=== PATIENT | female | born 1935 | race Two or more races ===

== ENCOUNTER 2018-10-06 17:54 | Inpatient (IN) | payer MEDICARE, OTHER ==
[~2018-10-06] VITALS: Ht 157.5 cm; Wt 66.2 kg
[2018-10-06 09:00] VITALS: BP 171/89
[2018-10-06] MEDS ORDERED: Z GUARD REMEDY PASTE 57 GM TUBE TOP PRN (22:00)
[2018-10-06] MEDS ORDERED: ATOR80TA GT (23:16)
[2018-10-06] MEDS ORDERED: LEVA1.2528 NEB (23:16)
[2018-10-06] MEDS ORDERED: IPRA0.2S6 NEB (23:16)
[2018-10-06] MEDS ORDERED: APIX2.5T GT (23:16)
[2018-10-06] MEDS ORDERED: AMIO200T4 GT (23:16)
[2018-10-06] MEDS ORDERED: ONDA4SOL2 IV (23:16)
[2018-10-06] MEDS ORDERED: MAGN400O6 GT (23:16)
[2018-10-06] MEDS ORDERED: ZINC220C8 GT (23:16)
[2018-10-06] MEDS ORDERED: ZIPR20CA2 IM (23:16)
--- NOTE | 2018-10-07 04:24 | NUR ---
admitted from [facility] (10/06) @ 2100 via ambulance with an admitting diagnosis of Acute CVA with right side weakness. Awake and alert. Patient aphasic.Able to follow commands. Daughter in with patient. On continous 2L of Oxygen via nasal cannula, pulse 98%. On admission patient has a Gtube placed on (10/07) secondary to unable to passed the swallowing evaluation in [place]. Patient also has a alexander catheter present on admission draining yellow urine. Skin intact, sacral area has some redness, also the bilateral groin has fungal rash noted secondary to moisture related dermatitis. Right upper arm double lumen PICC line(inserted 10/02) flushed and patent. As per report patient is going to be on Acyclovir IV x3 weeks. Patient started on Jevity tube feeds @ 50cc/hr with 100 cc water flush q6hrs HOB up at all times. Gtube patent no residual noted. Has hx of Afib, pulmonary fibrosis, HTN. hyperlipidemia, Hyponatremia, CAD, Dementia, herpes simplex, generalized weakness. Incontinent of BM. last BM (10/06) prior to admission. Dr Sweet aware of patient's admission and also regarding the med reconciliation and also aware of patient's vital signs and said to continue all her meds and he will see the patient today.NIHSS stroke scale assessment done.
[2018-10-07 04:59] VITALS: BP 126/86
[2018-10-07 05:04] VITALS: BP 126/86
[2018-10-07 05:40] VITALS: BP 176/92
--- NOTE | 2018-10-07 05:47 | NUR ---
BP 176/92 HR 116 RESP 19 PULSE OX 95% Metoprolol 5omg given . Will monitor patient.Will notify .
[2018-10-07] MEDS ORDERED: ACYCLOVIR 500 MG VIAL IV ONE (06:20)
[2018-10-07] MEDS: ACYCLOVIR IV SCH ×3 (06:42→22:07)
[2018-10-07] MEDS: NORMAL SALINE IV SCH ×3 (06:42→22:07)
[2018-10-07] MEDS ORDERED: ONDANSETRON HCL 4 MG/5 ML UDC ORAL SOL GT PRN (07:15)
[2018-10-07] MEDS ORDERED: ZIPRASIDONE 20 MG CAPSULE NG PRN (07:15)
[2018-10-07] MEDS ORDERED: MAGNESIUM HYDROXIDE 30 ML LIQUID UDC GT PRN (07:15)
[2018-10-07] MEDS ORDERED: ONDANSETRON 4 MG/2 ML VIAL IV PRN (07:30)
[2018-10-07] MEDS ORDERED: ZIPRASIDONE MESYLATE 20 MG VIAL IM PRN (07:30)
--- NOTE | 2018-10-07 07:49 | NUR ---
Dr Rosado called and let him aware of the BP and metoprolol given @ 6am. BP rechecked at this time 141/88 HR 80. Will endorsed to dayshift nurse.
[2018-10-07 08:46] VITALS: BP 141/88
[2018-10-07] MEDS ORDERED: METOPROLOL TARTRATE 50 MG TABLET GT SCH (09:00)
[2018-10-07] MEDS ORDERED: Medication Not On Formulary EA (Apixaban (Eliquis) 2.5 MG) GT SCH (09:00)
[2018-10-07] MEDS: LEVALBUTEROL HCL 1.25 MG/0.5 ML NEB NEB PRN ×2 (09:04→17:33)
[2018-10-07] MEDS: IPRATROPIUM BROMIDE 0.5 MG/2.5 ML NEBU NEB PRN ×2 (09:04→17:33)
[2018-10-07] MEDS: ZINC SULFATE 220 MG CAPSULE GT SCH (09:53)
[2018-10-07] MEDS: AMIODARONE HCL 200 MG TABLET GT SCH ×2 (09:54→22:06)
[2018-10-07] MEDS ORDERED: FUROSEMIDE 20 MG TABLET PO SCH (12:30)
--- NOTE | 2018-10-07 12:35 | NUR ---
Showed Dr. Rosado the ECG result done today and per MD no new order.
--- NOTE | 2018-10-07 12:41 | NUR ---
Dr. Rosado in the unit saw patient and gave order to change lasix 20mg PO to 20mg IV daily.
[2018-10-07] MEDS: FUROSEMIDE 20 MG/2 ML VIAL IV SCH (12:57)
[2018-10-07] MEDS: APIXABAN 5 MG TABLET GT SCH ×2 (13:01→22:11)
[2018-10-07 15:36] VITALS: BP 153/70
[2018-10-07 16:20] LABS: CARBON DIOXIDE 31 mmol/L (21-32); CHLORIDE 99 mmol/L (98-107); CREATININE 0.7 mg/dL (0.6-1.3); GLUCOSE 111 mg/dL (74-106); POTASSIUM 3.8 mmol/L (3.5-5.1); UREA NITROGEN, BLOOD 23 mg/dL (7-18)
--- NOTE | 2018-10-07 18:22 | NUR ---
Received an order from Dr. Kramer who is in the unit for Nystatin cream Q12hrs apply topically to bilateral groin.
[2018-10-07 20:21] VITALS: BP 157/71
[2018-10-07] MEDS: JEVITY 1.2 1000 ML LIQUID GT PRN (21:00)
[2018-10-07] MEDS ORDERED: APIXABAN 5 MG TABLET GT SCH (21:00)
[2018-10-07] MEDS: ATORVASTATIN 40 MG TABLET GT SCH (22:05)
[2018-10-07] MEDS: NYSTATIN CREAM 30 GM TUBE TOP SCH (22:07)
[2018-10-08 04:00] VITALS: BP 140/66
[2018-10-08] MEDS: NORMAL SALINE IV SCH ×3 (05:40→21:28)
[2018-10-08] MEDS: ACYCLOVIR IV SCH ×3 (05:40→21:28)
--- NOTE | 2018-10-08 06:00 | NUR ---
NEEDED NASAL SX TO PROTECT AIRWAY, DAUGHTER UPSET ABOUT PT BEING AWAKENED SO OFTEN,ATTEMPTED TO EXPLAIN REASONS FOR SX WITHOUT ANY SUCCESS. INFORMED ME TO JUST LEAVE HER MOTHER ALONE SO SHE COULD SLEEP A FEW HRS.. DAUGHTER AT BS ASLEEP ON THE FLOOR, PER HER WISHES..
[2018-10-08 07:13] LABS: BASOPHILS % (AUTO) 0.3 % (0.0-2.0); EOSINOPHILS # (AUTO) 0.6 K/uL (0.0-0.7); EOSINOPHILS % (AUTO) 4.8 % (0.0-7.0); HEMATOCRIT 24.1 % (31.2-41.9); HEMOGLOBIN 8.2 g/dL (10.9-14.3); LYMPHOCYTES # (AUTO) 1.4 K/uL (20.0-40.0); LYMPHOCYTES % (AUTO) 11.5 % (20.5-51.5); MEAN CORPUSCULAR HEMOGLOBIN 30.9 uug (24.7-32.8); MEAN CORPUSCULAR HGB CONC 34 g/dL (32.3-35.6); MEAN CORPUSCULAR VOLUME 90.3 fL (75.5-95.3); MONOCYTES # (AUTO) 1.1 K/uL (2.0-10.0); NEUTROPHILS # (AUTO) 9.4 K/uL (1.8-8.9); NEUTROPHILS % (AUTO) 74.4 % (38.5-71.5); PLATELET COUNT (AUTO) 283 K/uL (179-408); RED BLOOD CELL COUNT(AUTO) 2.67 MIL/uL (3.63-4.92); WHITE BLOOD COUNT (AUTO) 12.6 K/uL (3.8-11.8)
[2018-10-08 07:24] LABS: ALANINE AMINOTRANSFERASE 28 U/L (14-59); ALKALINE PHOSPHATASE 45 U/L (50-136); ASPARTATE AMINOTRANSFERASE 21 U/L (15-37); BILIRUBIN,TOTAL 0.4 mg/dL (0.2-1.0); CARBON DIOXIDE 30 mmol/L (21-32); CHLORIDE 103 mmol/L (98-107); CREATININE 0.8 mg/dL (0.6-1.3); GLUCOSE 133 mg/dL (74-106); MAGNESIUM 1.7 mg/dL (1.8-2.4); PHOSPHOROUS 4.1 mg/dL (2.5-4.9); POTASSIUM 3.9 mmol/L (3.5-5.1); TOTAL PROTEIN, SERUM 6.2 g/dL (6.4-8.2); UREA NITROGEN, BLOOD 23 mg/dL (7-18)
[2018-10-08 08:00] VITALS: BP 172/83
[2018-10-08] MEDS: APIXABAN 5 MG TABLET GT SCH ×2 (08:20→20:34)
[2018-10-08] MEDS: ZINC SULFATE 220 MG CAPSULE GT SCH (08:20)
[2018-10-08] MEDS: AMIODARONE HCL 200 MG TABLET GT SCH ×2 (08:21→20:29)
[2018-10-08] MEDS: FUROSEMIDE 20 MG/2 ML VIAL IV SCH (08:21)
[2018-10-08] MEDS: NYSTATIN CREAM 30 GM TUBE TOP SCH ×2 (08:22→20:34)
[2018-10-08] MEDS: IPRATROPIUM BROMIDE 0.5 MG/2.5 ML NEBU NEB PRN ×3 (09:39→20:40)
[2018-10-08] MEDS: LEVALBUTEROL HCL 1.25 MG/0.5 ML NEB NEB PRN ×3 (09:39→20:40)
--- NOTE | 2018-10-08 10:10 | NUR ---
Received patient awake in stable condition, Continue on jevity tube feeding. site intact. no signs of infection. Continue Pick line right arm. no signs of infiltration. Continue acyclovir treatment every 8 hours for herpes simplex. ABG result seen by MD Núñez. For neuro and nephro consult. Continue alexander catheter. intact and patent. Continue therapy treatment for ADL activity. will continue monitor
--- NOTE | 2018-10-08 10:23 | NUR ---
Neurologist MD Chau agreed to come this evening for the patient consult.
[2018-10-08] MEDS: MAGNESIUM OXIDE 400 MG TABLET PO SCH ×2 (12:51→20:28)
[2018-10-08 16:00] VITALS: BP 142/74
--- NOTE | 2018-10-08 19:15 | NUR ---
Awake during initial rounds. HOB elevated, saturating 97% at this time with O2 at 2L via NC. No s/s of respiratory distress noted. Family at bedside. PICC line right upper arm intact and patent. GT feeding continuos via Enteral pump, well tolerated. NO s/s of aspiration. Safety measure and fall precaution maintained. Continue care as planned.
[2018-10-08] MEDS: ATORVASTATIN 40 MG TABLET GT SCH (20:28)
[2018-10-08] MEDS: LEVETIRACETAM 500 MG/5 ML LIQUID UDC GT SCH (20:29)
[2018-10-08 20:48] VITALS: BP 157/91
[2018-10-08 20:57] VITALS: BP 166/89
--- NOTE | 2018-10-08 23:52 | NUR ---
Breathing slightly labored. Lung assessment done, crackles noted. Kept HOB elevated. RT notified and gave breathing treatment as needed and suctioned nasally as tolerated and obtained whitish colored sputum in moderate amount. Will continue to monitor.
[2018-10-09 04:10] VITALS: BP 202/92
[2018-10-09] MEDS: LEVALBUTEROL HCL 1.25 MG/0.5 ML NEB NEB PRN ×2 (04:18→12:58)
[2018-10-09] MEDS: IPRATROPIUM BROMIDE 0.5 MG/2.5 ML NEBU NEB PRN ×2 (04:18→12:58)
--- NOTE | 2018-10-09 04:20 | NUR ---
Pt moaning, holding her forehead. VS checked, 202/92, 113, 99.2. 99%. Spoke with Dr. Fernandes and obtained order of Nitri paste 1 inch to CW Q6 PRN SBP 170>.
[2018-10-09] MEDS: JEVITY 1.2 1000 ML LIQUID GT PRN (04:37)
[2018-10-09] MEDS ORDERED: NITROGLYCERIN OINT 1 GM PACKET TP ONE (04:46)
[2018-10-09] MEDS: NITROGLYCERIN OINT 1 GM PACKET TP PRN ×2 (04:46→12:15)
[2018-10-09 04:54] VITALS: BP 149/77
--- NOTE | 2018-10-09 04:57 | NUR ---
VS rechecked, 149/72, 92, 99%, 20, 99.0 . Will continue to monitor.
[2018-10-09] MEDS: NORMAL SALINE IV SCH ×2 (05:44→12:57)
[2018-10-09] MEDS: ACYCLOVIR IV SCH ×2 (05:44→12:57)
--- NOTE | 2018-10-09 06:00 | NUR ---
BP rechecked 160/85. No s/s of hypertension noted. Denies any pain/discomforts. Continue to monitor.
[2018-10-09 07:04] VITALS: BP 160/85
--- NOTE | 2018-10-09 07:38 | NUR ---
Shift End Report: VS been monitored closely. Nitro paste effective. No further complaint presented. All needs attended and met. Continue care as planned.
[2018-10-09 08:00] VITALS: BP 153/81
[2018-10-09] MEDS ORDERED: PROTEIN SUPPLEMENT (PROSTAT) 30 ML LIQUID GT SCH (08:00)
[2018-10-09] MEDS ORDERED: FUROSEMIDE 20 MG TABLET PO SCH (09:00)
[2018-10-09] MEDS: ZINC SULFATE 220 MG CAPSULE GT SCH (09:24)
[2018-10-09] MEDS: LEVETIRACETAM 500 MG/5 ML LIQUID UDC GT SCH (09:25)
[2018-10-09] MEDS: NYSTATIN CREAM 30 GM TUBE TOP SCH (09:25)
[2018-10-09] MEDS: AMIODARONE HCL 200 MG TABLET GT SCH (09:25)
[2018-10-09] MEDS: APIXABAN 5 MG TABLET GT SCH (09:37)
--- NOTE | 2018-10-09 10:19 | NUR ---
Patient noted resting in bed, no complaints of pain at this time, no signs of distress noted, daughter noted at bedside, call light in reach, bed locked and in lowest position, G-tube flushed with water and clamped off for physical therapy at this time, all medications crushed and given through G-tube with out complications, all needs met at this time
--- NOTE | 2018-10-09 10:50 | NUR ---
INTERDISCIPLINARY TEAM CONFERENCE
[2018-10-09 12:15] VITALS: BP 188/93
[2018-10-09] MEDS ORDERED: BENAZEPRIL HCL 10 MG TABLET PO SCH (16:43)
--- NOTE | 2018-10-09 17:08 | NUR ---
-1630 VITALS: 165/77, 98% O2 ON 2 LITERS NASAL CANNULA, 22 RESPIRATIONS, 96 PULSE, 98.6 ORAL TEMPERATURE -1650 VITALS: 288/103, 119 PULSE, FSBS: 141, OXYGEN SATURATION NOTED AT 22 % -1650 FAMILY STATES PATIENT IS HAVING DIFFICULTY WITH BREATHING, RAPID RESPONSE CALLED, PATIENT APPEARS WITH BLUE DISCOLORATION TO LIPS, SHORTNESS OF BREATH NOTED, SUCTION PROVIDED, READJUSTMENT OF OXYGEN PROBE, RT PLACED NON REBREATHER ON PATIENT AND TURNED OXYGEN UP TO 10 LITERS, PATIENT THEN SATURATED 99% PATIENT TRANSFERRED TO EMERGENCY ROOM AT THIS TIME. MD CARCAMO PAGED AND AWAITING RETURNED CALL. MD PAYNE NOTIFIED OF FINDINGS Addendum: 10/09/18 at 1739 by SANJUANITA PUTNAM RN RN correction: B/P 228/103
== END 2018-10-09 17:00 | disposition short-term general hospital (02) | DRG 56 ==
PROVIDERS: ADMIT Physical Medicine & Rehabilitation Pain Medicine; ATTEND Physical Medicine & Rehabilitation Pain Medicine
DX: I69.351 Hemiplegia and hemiparesis following cerebral infarction affecting right dominant side (principal); B00.4 Herpesviral encephalitis; J96.01 Acute respiratory failure with hypoxia; R47.01 Aphasia; G93.49 Other encephalopathy; J81.1 Chronic pulmonary edema; R13.10 Dysphagia, unspecified; R27.0 Ataxia, unspecified; I69.398 Other sequelae of cerebral infarction; E78.5 Hyperlipidemia, unspecified; R06.03 Acute respiratory distress; F03.90 Unspecified dementia, unspecified severity, without behavioral disturbance, psychotic disturbance, mood disturbance, and anxiety; I12.9 Hypertensive chronic kidney disease with stage 1 through stage 4 chronic kidney disease, or unspecified chronic kidney disease; N18.2 Chronic kidney disease, stage 2 (mild); R56.9 Unspecified convulsions; I48.0 Paroxysmal atrial fibrillation; Z93.1 Gastrostomy status; D64.9 Anemia, unspecified; L89.152 Pressure ulcer of sacral region, stage 2; M81.0 Age-related osteoporosis without current pathological fracture; Z87.891 Personal history of nicotine dependence; Z88.2 Allergy status to sulfonamides; I70.0 Atherosclerosis of aorta; Z91.81 History of falling; R26.9 Unspecified abnormalities of gait and mobility
CPT/HCPCS: 36415; 70030-TC; 71045; 83735; 84100; 84443; 85025; 92523; 92526; 92610; 93005; 94640; 94664; 97110; 97112; 97116; 97165; 97530; 97535; A4217; A4663; J0133; J1940; J3490; J3590; J7040

== ENCOUNTER 2018-10-09 17:04 | Inpatient (IN) | payer MEDICARE, OTHER ==
[2018-10-09] VITALS (8 sets, daily range): BP systolic 115–163; BP diastolic 52–85
[~2018-10-09] VITALS: Ht 157.5 cm; Wt 58.1 kg
[~2018-10-09 17:04] MED LIST: AMIO200T4 GT; APIX2.5T GT; ATOR80TA GT; IPRA0.2S6 NEB; LEVA1.2528 NEB; MAGN400O6 GT; ONDA4SOL2 IV; ZINC220C8 GT; ZIPR20CA2 IM
--- NOTE | 2018-10-09 17:07 | NUR ---
At 1700, Dr. Concepcion at the bedside for MSE. Pt transferred from Acute Rehab rapid reponse. Addendum: 10/09/18 at 1812 by BEKAH Pt desaturating SpO2 in acute rehab and pt received on 100% NRB mask.
[2018-10-09] MEDS ORDERED: MORPHINE SULFATE 4 MG/1 ML DISP.SYRIN ONE (17:12)
[2018-10-09] MEDS ORDERED: NITROGLYCERIN IV 250 ML ONE (17:13)
[2018-10-09] MEDS ORDERED: NITROGLYCERIN IV 250 ML IV ONE (17:15)
[2018-10-09] MEDS ORDERED: BUMETANIDE INJ 4 MG in IV DEXTROSE 5% 24 ML IV ONE (17:15)
[2018-10-09] MEDS ORDERED: MORPHINE SULFATE 2 MG/1 ML DISP.SYRIN IV ONE (17:15)
[2018-10-09] MEDS ORDERED: FUROSEMIDE 40 MG/4 ML VIAL ONE (17:19)
[2018-10-09] MEDS ORDERED: FUROSEMIDE 20 MG/2 ML VIAL IV ONE (17:30)
[2018-10-09 17:32] LABS: BASOPHILS # (AUTO) 0.1 K/uL (0.0-8.0); BASOPHILS % (AUTO) 0.4 % (0.0-2.0); EOSINOPHILS # (AUTO) 0.5 K/uL (0.0-0.7); EOSINOPHILS % (AUTO) 3.3 % (0.0-7.0); HEMATOCRIT 28.5 % (31.2-41.9); HEMOGLOBIN 9.5 g/dL (10.9-14.3); LYMPHOCYTES # (AUTO) 2.2 K/uL (20.0-40.0); LYMPHOCYTES % (AUTO) 13.1 % (20.5-51.5); MEAN CORPUSCULAR HEMOGLOBIN 30.3 uug (24.7-32.8); MEAN CORPUSCULAR HGB CONC 33 g/dL (32.3-35.6); MEAN CORPUSCULAR VOLUME 90.8 fL (75.5-95.3); MONOCYTES # (AUTO) 1.6 K/uL (2.0-10.0); MONOCYTES % (AUTO) 9.8 % (0.0-11.0); NEUTROPHILS # (AUTO) 12.2 K/uL (1.8-8.9); NEUTROPHILS % (AUTO) 73.4 % (38.5-71.5); PLATELET COUNT (AUTO) 323 K/uL (179-408); RED BLOOD CELL COUNT(AUTO) 3.14 MIL/uL (3.63-4.92); WHITE BLOOD COUNT (AUTO) 16.6 K/uL (3.8-11.8)
[2018-10-09 17:41] LABS: CARBON DIOXIDE 31 mmol/L (21-32); CHLORIDE 100 mmol/L (98-107); CREATININE 0.8 mg/dL (0.6-1.3); GLUCOSE 131 mg/dL (74-106); UREA NITROGEN, BLOOD 26 mg/dL (7-18)
[2018-10-09 17:54] LABS: ALANINE AMINOTRANSFERASE 43 U/L (14-59); ALKALINE PHOSPHATASE 62 U/L (50-136); ASPARTATE AMINOTRANSFERASE 38 U/L (15-37); BILIRUBIN,DIRECT 0.1 mg/dL (0.0-0.2); BILIRUBIN,TOTAL 0.4 mg/dL (0.2-1.0); TOTAL PROTEIN, SERUM 7.6 g/dL (6.4-8.2)
--- NOTE | 2018-10-09 18:10 | NUR ---
Dr. Concepcion spoke with Dr. Fely Seaman on the telephone and report given. IV nitroglycerin stopped per Dr. Seaman's orders. Will continue to monitor pt's blood pressure.
--- NOTE | 2018-10-09 19:14 | NUR ---
Full telephone SBAR report given to ALEJANDRA Pretty.
--- NOTE | 2018-10-09 19:40 | NUR ---
Admitted an 83 y.o. female patient from ER via lio DX:CHF. To CCU 1 as Tele overflow. Patient aphasic, with R sided weakness from recent CVA. Opens eyes spontaneously,tracks, localizes pain, but doesn't follow any commands. With PICC line double lumen to BERNARDO; both ports flushed with NS; no resistance. Assessment done. Addendum: 10/09/18 at 2318 by BALDOMERO VILLALOBOS RN Amended: Links added. Addendum: 10/09/18 at 2327 by BALDOMERO VILLALOBOS RN Amended: Links added.
--- NOTE | 2018-10-09 20:05 | NUR ---
Call placed to Dr. Seaman for admitting orders. Family visited. Spoke to patient's daughter Ayanna. Plan of care discussed with her; verbalized understanding.
--- NOTE | 2018-10-09 20:35 | NUR ---
Dr. Seaman called back with admission orders.
[2018-10-09] MEDS ORDERED: JEVITY 1.2 1000 ML LIQUID GT PRN (20:45)
[2018-10-09] MEDS ORDERED: Z GUARD REMEDY PASTE 57 GM TUBE TOP PRN (20:45)
[2018-10-09] MEDS ORDERED: ONDANSETRON 4 MG/2 ML VIAL IV PRN (20:45)
[2018-10-09] MEDS ORDERED: MAGNESIUM HYDROXIDE 30 ML LIQUID UDC GT PRN (21:00)
[2018-10-09] MEDS ORDERED: LEVALBUTEROL HCL 1.25 MG/0.5 ML NEB NEB PRN (21:00)
[2018-10-09] MEDS ORDERED: ATORVASTATIN 40 MG TABLET PO SCH (21:00)
--- NOTE | 2018-10-09 21:00 | NUR ---
With noisy respirations at times. Sat above 95% on 3 L NC. Suctioned both nasally and orally; with thick barrow bloody tinged secretions. HOB elevated above 30 degrees at all times. Addendum: 10/09/18 at 2327 by BALDOMERO VILLALOBOS RN Amended: Links added.
--- NOTE | 2018-10-09 21:30 | NUR ---
Meds given via patent GT; Feedings started at 50 ml/H.
[2018-10-09] MEDS: AMIODARONE HCL 200 MG TABLET GT SCH (21:33)
[2018-10-09] MEDS: ATORVASTATIN 40 MG TABLET GT SCH (21:33)
[2018-10-09] MEDS: METOPROLOL TARTRATE 50 MG TABLET GT SCH (21:34)
[2018-10-09] MEDS: LEVETIRACETAM 500 MG/5 ML LIQUID UDC GT SCH (21:34)
[2018-10-09] MEDS: BENAZEPRIL HCL 10 MG TABLET PO SCH (21:34)
[2018-10-09] MEDS: MAGNESIUM OXIDE 400 MG TABLET GT SCH (21:34)
[2018-10-09] MEDS: Z GUARD REMEDY PASTE 57 GM TUBE TOP SCH (21:36)
[2018-10-09] MEDS: APIXABAN 5 MG TABLET PO SCH (21:37)
[2018-10-09] MEDS: ACYCLOVIR IV 500 MG in IV DEXTROSE 5% 100 ML IV SCH (21:52)
[2018-10-10] VITALS (18 sets, daily range): BP systolic 81–146; BP diastolic 48–77
[2018-10-10 04:48] LABS: BASOPHILS % (AUTO) 0.1 % (0.0-2.0); EOSINOPHILS # (AUTO) 0.8 K/uL (0.0-0.7); EOSINOPHILS % (AUTO) 4.6 % (0.0-7.0); HEMATOCRIT 27.4 % (31.2-41.9); HEMOGLOBIN 9.5 g/dL (10.9-14.3); LYMPHOCYTES # (AUTO) 0.7 K/uL (20.0-40.0); LYMPHOCYTES % (AUTO) 4.3 % (20.5-51.5); MEAN CORPUSCULAR HEMOGLOBIN 30.9 uug (24.7-32.8); MEAN CORPUSCULAR HGB CONC 35 g/dL (32.3-35.6); MEAN CORPUSCULAR VOLUME 89.5 fL (75.5-95.3); MONOCYTES # (AUTO) 1.1 K/uL (2.0-10.0); MONOCYTES % (AUTO) 6.7 % (0.0-11.0); NEUTROPHILS # (AUTO) 14.3 K/uL (1.8-8.9); NEUTROPHILS % (AUTO) 84.3 % (38.5-71.5); PLATELET COUNT (AUTO) 311 K/uL (179-408); RED BLOOD CELL COUNT(AUTO) 3.06 MIL/uL (3.63-4.92); WHITE BLOOD COUNT (AUTO) 16.9 K/uL (3.8-11.8)
[2018-10-10 04:51] LABS: CARBON DIOXIDE 35 mmol/L (21-32); CHLORIDE 100 mmol/L (98-107); CREATININE 0.9 mg/dL (0.6-1.3); GLUCOSE 134 mg/dL (74-106); POTASSIUM 3.9 mmol/L (3.5-5.1); UREA NITROGEN, BLOOD 31 mg/dL (7-18)
[2018-10-10] MEDS: ACYCLOVIR IV 500 MG in IV DEXTROSE 5% 100 ML IV SCH ×3 (05:42→21:53)
--- NOTE | 2018-10-10 06:11 | NUR ---
With noisy respirations during activity. Requires oral suctioning; with large amount of thick barrow, bloody tinged secretions. Tolerating GT feedings well. HOB above 30 degrees at all times. Addendum: 10/10/18 at 611 by BALDOMERO VILLALOBOS RN Amended: Links added. Addendum: 10/10/18 at 611 by BALDOMERO VILLALOBOS RN Amended: Links added. Addendum: 10/10/18 at 611 by BALDOMERO TAECHARATKIJ RN Amended: Links added. Addendum: 10/10/18 at 0613 by BALDOMERO VILLALOBOS RN Amended: Links added. Addendum: 10/10/18 at 0613 by BALDOMERO VILLALOBOS RN Amended: Links added. Addendum: 10/10/18 at 0613 by BALDOMERO VILLALOBOS RN Amended: Links added.
--- NOTE | 2018-10-10 06:45 | NUR ---
Transferred to 209 per bed. NAD noted.
--- NOTE | 2018-10-10 07:10 | NUR ---
SBAR report given to Lyn ROBERTS.
[2018-10-10] MEDS: PROTEIN SUPPLEMENT (PROSTAT) 30 ML LIQUID GT SCH (08:17)
[2018-10-10] MEDS: ZINC SULFATE 220 MG CAPSULE GT SCH (08:17)
[2018-10-10] MEDS: BENAZEPRIL HCL 10 MG TABLET PO SCH (08:18)
[2018-10-10] MEDS: METOPROLOL TARTRATE 50 MG TABLET GT SCH ×2 (08:18→21:00)
[2018-10-10] MEDS: APIXABAN 5 MG TABLET PO SCH ×2 (08:22→16:06)
[2018-10-10] MEDS: LEVETIRACETAM 500 MG/5 ML LIQUID UDC GT SCH ×2 (08:22→20:58)
[2018-10-10] MEDS: Z GUARD REMEDY PASTE 57 GM TUBE TOP SCH ×2 (08:23→20:40)
[2018-10-10] MEDS: AMIODARONE HCL 200 MG TABLET GT SCH ×2 (08:24→21:02)
[2018-10-10] MEDS ORDERED: FUROSEMIDE 40 MG/4 ML VIAL IV SCH (09:00)
[2018-10-10] MEDS ORDERED: AMIODARONE HCL 200 MG TABLET GT SCH (09:00)
[2018-10-10] MEDS ORDERED: IPRATROPIUM BROMIDE 0.5 MG/2.5 ML NEBU NEB PRN (10:00)
[2018-10-10] MEDS ORDERED: ALBUTEROL SULFATE 1.25 MG/3 ML NEBU NEB PRN (10:00)
[2018-10-10] MEDS: IPRATROPIUM BROMIDE 0.5 MG/2.5 ML NEBU NEB PRN ×3 (10:24→19:20)
[2018-10-10] MEDS ORDERED: ACETYLCYSTEINE 10% 4ML VIAL NEB SCH (10:30)
--- NOTE | 2018-10-10 10:30 | NUR ---
FAMILY AT BEDSIDE YELLING AT NURSING STAFF. PATIENT WAS DESATING EXPLAINED TO DAUGHTER THAT PATIENT NEEDS TO BE SUCTION TO PROVIDE ADEQUATE OXYGENATION. DAUGHTER DID NOT WANT TO HAVE PATIENT SUCTIONED AND TO PLACE A MASK FOR OXYGENATING ONLY AND STATED THAT SUCTIONING DOES NOT WORK AND HAD BEEN DOING THAT ALL NIGHT INSISTED ON PLACING JUST A MASK. PATIENT SUCTIONED TO CLEAR MUCOUS PLUG, PATIENT HAD THICK COLOR SECRETIONS WITH PLUGS. ONCE PATIENT SUCTION SATURATION >90%. BERYL JIG AND FIXTURE MAKER STEPPED IN TO ROOM AND ORDERED STAT CXR ABG AND PLACE GT TO SUCTION. RT SUCTIONED TO CLEAR MORE SECRETIONS AND PATIENT VOMIT. RESIDUAL THIS MORNING LESS THAN 100ML IN GT. PLACED PATIENT ON NONREBREATHER FOR PERIODIC REOXYGENATION. DOCTOR BAÑUELOS IN UNIT AND INFORMED OF PATIENT STATUS.
[2018-10-10 10:35] LABS: ABG BASE EXCESS 7.6 mmol/L; ABG PCO2 38.9 mmHg (35.0-45.0); ABG PH 7.519 (7.350-7.450); ABG PO2 56.8 mmHg (75.0-100.0); ABG SITE RIGHT RADIAL; ABG TOTAL HEMOGLOBIN 11.5 G/dL (12.0-16.0); MetHb 0.4 % (0.0-1.5); O2Hb 89.4 % (94.0-97.0); VENT MODE Nasal Cannula
--- NOTE | 2018-10-10 11:35 | NUR ---
DR. CUNHA IN UNIT TO SEE PATIENT. HE SPOKE TO EDDA REGARDING PATIENT AND RESPIRATORY DISTRESS ISSUE EARLIER.
[2018-10-10] MEDS ORDERED: PIPERACILLIN/TAZOBACTAM/D5W 3.375 G in PREMIXED 1 EACH IV SCH (12:00)
[2018-10-10] MEDS: LEVALBUTEROL HCL NEB 0.63 MG/3 ML NEBU NEB SCH ×2 (13:11→19:20)
[2018-10-10] MEDS: PIPERACILLIN/TAZOBACTAM/D5W 3.375 G in PREMIXED 1 EACH IV SCH ×2 (16:03→23:41)
--- NOTE | 2018-10-10 17:19 | NUR ---
PATIENT NEEDS FREQUENT SUCTIONING, VERY THICK SECRETIONS. TRIALED PATIENT ON 50% VENTI MASK PATIENT DID NOT TOLERATE POST SUCTIONING. PLACED PATIENT BACK ON NONREBREATHER.
--- NOTE | 2018-10-10 18:19 | NUR ---
PAGED DOCTOR ALPHONSE THE ONCALL PHYSICIAN REGARDING PATIENTS DECLINE AND CHANGE IN STATUS. PATIENT BREATHING IS MORE LABORED EVEN AFTER FREQUENT SUCTIONING OF VERY THICK SECRETIONS. PATIENTS IS ON NON-REBREATHER SINCE THIS MORNING WITH NO IMPROVEMENT WHEN TITRATING DOWN ON O2. PATIENT IS FEBRILE WITH TEMPERATURE OF 102.6 TYLENOL ADMINISTERED AND 600ML OUT OF ENTIRE SHIFT THAT IS WITH LASIX GIVEN IN AM. LAST NIGHT OBTAINED OVER 1400 ML OUT.
[2018-10-10] MEDS: ACETAMINOPHEN 650 MG/20.3 ML LIQUID UDC GT PRN ×2 (18:26→18:31)
--- NOTE | 2018-10-10 18:30 | NUR ---
TRANSFER TO ICU PER DOCTOR CUNHA
[2018-10-10 19:12] LABS: ABG BASE EXCESS 6.6 mmol/L; ABG HCO3 31.1 mmol/L; ABG PCO2 44.8 mmHg (35.0-45.0); ABG PO2 281.2 mmHg (75.0-100.0); ABG SITE LEFT RADIAL; ABG TOTAL HEMOGLOBIN 10.8 G/dL (12.0-16.0); COHb 0.4 % (0.5-1.5); MetHb 0.7 % (0.0-1.5); O2Hb 98.7 % (94.0-97.0)
[2018-10-10] MEDS: ACETYLCYSTEINE 10% 4ML VIAL NEB SCH (19:21)
--- NOTE | 2018-10-10 20:00 | NUR ---
RECEIVED PT FROM MS2 VIA BED TO CCU1 CCU STATUS.PT ON 100% NRM W/ O2 SAT OF 100%. PICC LINE DOUBLE LUMEN INTACT & PATENT ON BERNARDO.G-TUBE INTACT CONNECTED TO LOW SUCTION W/ MINIMAL BILE DRAINAGE. PT IS NPO UNTIL FURTHER ORDER.HS CARE DONE, REPOSITIONED ON HER SIDE W/ HOB ELEVATED. TEMP-99.8 AXILLARY, COOLING MEASURE APPLIED.
[2018-10-10] MEDS: ATORVASTATIN 40 MG TABLET GT SCH (20:39)
[2018-10-10] MEDS: MAGNESIUM OXIDE 400 MG TABLET GT SCH (20:39)
[2018-10-10] MEDS ORDERED: IV D5 1/2 NS 1000 ML 1,000 ML IV PRN (21:30)
[2018-10-10] MEDS ORDERED: IV NS 1000 ML 1,000 ML IV ONE (21:30)
--- NOTE | 2018-10-10 21:30 | NUR ---
BP-81/49, ON THE 80S SYSTOLIC, CALLED DR CUNHA W/ JARETT.
--- NOTE | 2018-10-10 21:35 | NUR ---
NS IV BOLUS HUNG ORDERED.
--- NOTE | 2018-10-10 22:00 | NUR ---
SUCTIONED INTRANASALLY & ORALLY W/ MODERATE THICK TANNISH MUCOUS. REPOSITIONED W/ HOB ELEVATED.
[2018-10-11] VITALS (24 sets, daily range): BP systolic 86–152; BP diastolic 44–72
[2018-10-11] MEDS: IPRATROPIUM BROMIDE 0.5 MG/2.5 ML NEBU NEB PRN ×4 (01:17→19:54)
[2018-10-11] MEDS: LEVALBUTEROL HCL NEB 0.63 MG/3 ML NEBU NEB SCH ×4 (01:17→19:54)
[2018-10-11] MEDS: hydrALAZINE HCL 20 MG/1 ML VIAL IV PRN (04:29)
--- NOTE | 2018-10-11 04:30 | NUR ---
Pt noted with BP 168/126. Hydralazine administered as ordered.
--- NOTE | 2018-10-11 04:30 | NUR ---
AM CARE DONE. ORAL CARE DONE AFTER EACH SUCTION.
[2018-10-11 04:58] LABS: BASOPHILS % (AUTO) 0.2 % (0.0-2.0); EOSINOPHILS # (AUTO) 0.2 K/uL (0.0-0.7); EOSINOPHILS % (AUTO) 1.2 % (0.0-7.0); HEMATOCRIT 25.4 % (31.2-41.9); HEMOGLOBIN 8.5 g/dL (10.9-14.3); LYMPHOCYTES # (AUTO) 0.8 K/uL (20.0-40.0); LYMPHOCYTES % (AUTO) 5.8 % (20.5-51.5); MEAN CORPUSCULAR HGB CONC 33 g/dL (32.3-35.6); MEAN CORPUSCULAR VOLUME 89.9 fL (75.5-95.3); MONOCYTES # (AUTO) 0.8 K/uL (2.0-10.0); MONOCYTES % (AUTO) 5.7 % (0.0-11.0); NEUTROPHILS # (AUTO) 12.1 K/uL (1.8-8.9); NEUTROPHILS % (AUTO) 87.1 % (38.5-71.5); PLATELET COUNT (AUTO) 260 K/uL (179-408); RED BLOOD CELL COUNT(AUTO) 2.83 MIL/uL (3.63-4.92); WHITE BLOOD COUNT (AUTO) 13.9 K/uL (3.8-11.8)
[2018-10-11 05:05] LABS: CARBON DIOXIDE 30 mmol/L (21-32); CHLORIDE 100 mmol/L (98-107); CREATININE 1.2 mg/dL (0.6-1.3); MAGNESIUM 1.6 mg/dL (1.8-2.4); PHOSPHOROUS 3.4 mg/dL (2.5-4.9); UREA NITROGEN, BLOOD 44 mg/dL (7-18)
[2018-10-11] MEDS: ACYCLOVIR IV 500 MG in IV DEXTROSE 5% 100 ML IV SCH ×3 (05:24→21:20)
[2018-10-11 05:29] LABS: GLUCOSE 335 mg/dL (74-106)
--- NOTE | 2018-10-11 05:30 | NUR ---
Received result from Lab. Blood glucose 335mg/dl. on-call paged.
[2018-10-11] MEDS: IV NORMAL SALINE 250 ML IV PRN (05:33)
[2018-10-11] MEDS: IV NS 1000 ML 1,000 ML IV PRN (06:12)
[2018-10-11] MEDS: PIPERACILLIN/TAZOBACTAM/D5W 3.375 G in PREMIXED 1 EACH IV SCH ×3 (06:26→22:19)
[2018-10-11] MEDS: ACETYLCYSTEINE 10% 4ML VIAL NEB SCH ×2 (06:42→19:53)
[2018-10-11] MEDS: LEVETIRACETAM 500 MG/5 ML LIQUID UDC GT SCH ×2 (08:08→21:16)
[2018-10-11] MEDS: ACETAMINOPHEN 650 MG/20.3 ML LIQUID UDC GT PRN (08:08)
[2018-10-11] MEDS: PROTEIN SUPPLEMENT (PROSTAT) 30 ML LIQUID GT SCH (08:08)
[2018-10-11] MEDS: ZINC SULFATE 220 MG CAPSULE GT SCH (08:10)
[2018-10-11] MEDS: METOPROLOL TARTRATE 50 MG TABLET GT SCH ×2 (08:10→21:00)
[2018-10-11] MEDS: AMIODARONE HCL 200 MG TABLET GT SCH ×2 (08:10→21:16)
[2018-10-11 08:12] LABS: ABG BASE EXCESS 5.6 mmol/L; ABG HCO3 28.4 mmol/L; ABG PCO2 34.8 mmHg (35.0-45.0); ABG PO2 93.8 mmHg (75.0-100.0); ABG SITE RIGHT RADIAL; ABG TOTAL HEMOGLOBIN 9.7 G/dL (12.0-16.0); COHb 0.9 % (0.5-1.5); MetHb 0.5 % (0.0-1.5); O2Hb 95.5 % (94.0-97.0)
[2018-10-11] MEDS: Z GUARD REMEDY PASTE 57 GM TUBE TOP SCH ×2 (08:20→21:15)
[2018-10-11] MEDS: APIXABAN 5 MG TABLET PO SCH ×2 (08:21→17:42)
[2018-10-11] MEDS: BENAZEPRIL HCL 5 MG TABLET PO SCH ×2 (09:00→21:00)
[2018-10-11] MEDS ORDERED: BENAZEPRIL HCL 10 MG TABLET PO SCH (09:00)
[2018-10-11] MEDS: POTASSIUM CHLORIDE 50 ML IV SCH ×2 (11:06→12:13)
[2018-10-11] MEDS: MAGNESIUM SULFATE/D5W 100 ML IV SCH ×2 (11:06→12:13)
--- NOTE | 2018-10-11 15:48 | NUR ---
Clinical Pharmacy Note: Vancomycin Pharmacy to dose Subjective: To start vancomycin in this 83 y/o female for indication of PNA. Also on zosyn extended infusion, acyclovir - 2nd line started Objective: weight 64kg height 157 cm BUN 44 Scr 1.2 (10/10 0.9) Wbc 13.9 temp 101.8 Assessment/Plan Due to continual decrease in renal function since admission, will dose per level for now. 1gm vanco dosed today at 1600, random level for tomorrow with am labs. Will check level in am and re-dose as appropriate. Will follow
[2018-10-11] MEDS ORDERED: VANCOMYCIN IV 1 G in PREMIXED 0 EACH IV ONE (16:00)
--- NOTE | 2018-10-11 18:57 | NUR ---
RECEIVED REPORT ON PATIENT BY CARLOS ROBERTS IN ER. PATIENT IS ON NONREBREATHER SATURATION 98% PERCENT. PATIENT BROUGHT IN POST REPORT. PLACED ON MONITOR. ADMITTING PICTURES TAKEN AND VITAL SIGNS DOCUMENTED. 2ND IV STARTED. Addendum: 10/11/18 at 1903 by GUS VILLAGOMEZ RN ENTRY ERROR.
[2018-10-11] MEDS: ATORVASTATIN 40 MG TABLET GT SCH (21:16)
[2018-10-11] MEDS: MAGNESIUM OXIDE 400 MG TABLET GT SCH (21:16)
[2018-10-12] VITALS (48 sets, daily range): BP systolic 53–136; BP diastolic 20–100
[2018-10-12] MEDS: IPRATROPIUM BROMIDE 0.5 MG/2.5 ML NEBU NEB PRN ×4 (00:03→20:24)
[2018-10-12] MEDS: LEVALBUTEROL HCL NEB 0.63 MG/3 ML NEBU NEB SCH ×2 (00:03→08:04)
[2018-10-12] MEDS: IV NS 1000 ML 1,000 ML IV PRN ×2 (00:55→20:05)
[2018-10-12 05:30] LABS: BASOPHILS % (AUTO) 0.3 % (0.0-2.0); EOSINOPHILS # (AUTO) 1.2 K/uL (0.0-0.7); EOSINOPHILS % (AUTO) 9.3 % (0.0-7.0); HEMOGLOBIN 7.7 g/dL (10.9-14.3); LYMPHOCYTES % (AUTO) 7.6 % (20.5-51.5); MEAN CORPUSCULAR HEMOGLOBIN 29.9 uug (24.7-32.8); MEAN CORPUSCULAR HGB CONC 33 g/dL (32.3-35.6); MEAN CORPUSCULAR VOLUME 89.6 fL (75.5-95.3); MONOCYTES # (AUTO) 1.1 K/uL (2.0-10.0); MONOCYTES % (AUTO) 8.1 % (0.0-11.0); NEUTROPHILS % (AUTO) 74.7 % (38.5-71.5); PLATELET COUNT (AUTO) 222 K/uL (179-408); RED BLOOD CELL COUNT(AUTO) 2.56 MIL/uL (3.63-4.92); WHITE BLOOD COUNT (AUTO) 13.3 K/uL (3.8-11.8)
[2018-10-12 05:40] LABS: CARBON DIOXIDE 32 mmol/L (21-32); CHLORIDE 106 mmol/L (98-107); CREATININE 0.9 mg/dL (0.6-1.3); GLUCOSE 106 mg/dL (74-106); MAGNESIUM 2.3 mg/dL (1.8-2.4); PHOSPHOROUS 2.7 mg/dL (2.5-4.9); POTASSIUM 2.9 mmol/L (3.5-5.1); UREA NITROGEN, BLOOD 39 mg/dL (7-18)
[2018-10-12] MEDS: ACYCLOVIR IV 500 MG in IV DEXTROSE 5% 100 ML IV SCH ×3 (05:43→21:43)
[2018-10-12] MEDS: PIPERACILLIN/TAZOBACTAM/D5W 3.375 G in PREMIXED 1 EACH IV SCH (06:46)
[2018-10-12] MEDS ORDERED: AMIODARONE HCL IV 150 MG in IV DEXTROSE 5% 100 ML IV ONE (07:30)
[2018-10-12] MEDS ORDERED: AMIODARONE HCL IV 900 MG in IV DEXTROSE 5% 482 ML IV PRN (07:30)
[2018-10-12] MEDS ORDERED: NOREPINEPHRINE BITARTRATE 16 MG in IV DEXTROSE 5% 500 ML IV PRN (07:30)
--- NOTE | 2018-10-12 07:30 | NUR ---
PATIENT IN UNCONTROLLED AFIB, SBP IN MID 60'S, CALLED DOCTOR MARIE FOR ORDERS. AMIODARONE 150 MG BOLUS, FOLLOWED BY AMIODARONE DRIP PER PROTOCOL, START LEVOPHED TO KEEP SBP ABOVE 65.
[2018-10-12] MEDS: ACETYLCYSTEINE 10% 4ML VIAL NEB SCH ×2 (08:05→20:22)
[2018-10-12 08:29] LABS: ABG BASE EXCESS 3.5 mmol/L; ABG HCO3 28.2 mmol/L; ABG PCO2 43.8 mmHg (35.0-45.0); ABG PH 7.427 (7.350-7.450); ABG PO2 227.2 mmHg (75.0-100.0); ABG SITE RIGHT RADIAL; COHb 1.1 % (0.5-1.5); MetHb 0.4 % (0.0-1.5); O2Hb 98.4 % (94.0-97.0)
--- NOTE | 2018-10-12 08:30 | NUR ---
DOCTOR BAÑUELOS IN THE UNIT. UPDATED REGARDING AFIB AND HYPOTENSION. NEW ORDERS RECEIVED.
[2018-10-12] MEDS: AMIODARONE HCL 200 MG TABLET GT SCH ×2 (08:34→20:47)
[2018-10-12] MEDS: METOPROLOL TARTRATE 50 MG TABLET GT SCH (08:34)
[2018-10-12] MEDS: BENAZEPRIL HCL 5 MG TABLET PO SCH (08:35)
[2018-10-12] MEDS: ZINC SULFATE 220 MG CAPSULE GT SCH (08:40)
[2018-10-12] MEDS: LEVETIRACETAM 500 MG/5 ML LIQUID UDC GT SCH ×2 (08:40→20:47)
[2018-10-12] MEDS: PROTEIN SUPPLEMENT (PROSTAT) 30 ML LIQUID GT SCH (08:40)
[2018-10-12] MEDS: APIXABAN 5 MG TABLET PO SCH ×2 (08:41→17:39)
[2018-10-12] MEDS: Z GUARD REMEDY PASTE 57 GM TUBE TOP SCH ×2 (08:46→20:47)
[2018-10-12] MEDS ORDERED: MAGNESIUM SULFATE/D5W 100 ML IV SCH (09:06)
[2018-10-12] MEDS ORDERED: POTASSIUM CHLORIDE 50 ML IV SCH (09:15)
[2018-10-12] MEDS: POTASSIUM CHLORIDE 50 ML IV SCH ×4 (09:28→13:24)
--- NOTE | 2018-10-12 09:54 | NUR ---
Clinical Pharmacy Note: Vancomycin Pharmacy to dose Subjective: To continue vancomycin in this 83 y/o female for indication of PNA. Also on zosyn, acyclovir, and today started amiodarone. zosyn changed back to regular infusion duration d/t multiple incompatibilities Objective: weight 64kg height 157 cm BUN 39 Scr 0.9 (decrease to 1.2) Wbc 13.3 temp 98.4 Random today with am labs 11.5 Assessment/Plan Due to unstable renal function (increased from baseline, now decreased again), will dose per level for now. 1gm vanco dosed today at 1100, random level for tomorrow with am labs. Will check level in am and re-dose as appropriate. If Scr were to remain stable, may start scheduled regimen. Will follow
[2018-10-12] MEDS ORDERED: VANCOMYCIN IV 1 G in PREMIXED 0 EACH IV ONE (11:00)
--- NOTE | 2018-10-12 12:00 | NUR ---
DOCTOR SHTORCH IN UNIT TO SEE PATIENT. SPOKE WITH FAMILY REGARDING CONDITION.
[2018-10-12] MEDS ORDERED: methylPREDNISolone SOD SUCC 40 MG/ML VIAL IV ONE (12:15)
[2018-10-12] MEDS: LEVALBUTEROL HCL NEB 0.63 MG/3 ML NEBU NEB PRN (13:16)
--- NOTE | 2018-10-12 14:00 | NUR ---
CHANGED AMIODARONE DRIP TO 0.5MG PER PROTOCOL
[2018-10-12] MEDS: PIPERACILLIN/TAZOBACTAM/D5W 50 ML IV SCH ×2 (15:46→19:28)
--- NOTE | 2018-10-12 17:00 | NUR ---
ID IN THE UNIT TO SEE PATIENT.
--- NOTE | 2018-10-12 19:30 | NUR ---
Report received. 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 Eyes open, tracks, but doesn't follow any commands. Language barrier present: primary language Farsi. With incomprehensible sounds. Mildly restless, legs over rails; on fall precautions. HOB elevated above 30 degrees at all times. Suctioned orally for thick white clear secretions. On Amiodarone drip @ 0.5 mcg/min via PICC line BERNARDO. Assessment completed. Addendum: 10/12/18 at 2124 by BALDOMERO VILLALOBOS RN Amended: Links added. Addendum: 10/12/18 at 2126 by BALDOMERO VILLALOBOS RN Amended: Links added.
--- NOTE | 2018-10-12 19:45 | NUR ---
Placed on air mattress. PM care rendered. Noted rashes to perineal and groin areas. Photo taken and documented. Patient remains mildly restless. Safety maintained. Addendum: 10/12/18 at 2127 by BALDOMERO VILLALOBOS RN Amended: Links added.
[2018-10-12] MEDS: ATORVASTATIN 40 MG TABLET GT SCH (20:46)
[2018-10-12] MEDS: MUPIROCIN 2% OINT 22 GM TUBE NS SCH (20:46)
[2018-10-12] MEDS: MAGNESIUM OXIDE 400 MG TABLET GT SCH (20:46)
[2018-10-12] MEDS: ACETAMINOPHEN 650 MG/20.3 ML LIQUID UDC GT PRN (20:49)
--- NOTE | 2018-10-12 21:00 | NUR ---
Amiodarone 200 mg via GT not given; patient is on Amiodarone drip.
[2018-10-13] VITALS (37 sets, daily range): BP systolic 100–190; BP diastolic 43–95
[2018-10-13] MEDS: PIPERACILLIN/TAZOBACTAM/D5W 50 ML IV SCH ×3 (02:02→15:19)
[2018-10-13 04:39] LABS: BASOPHILS % (AUTO) 0.2 % (0.0-2.0); HEMATOCRIT 21.7 % (31.2-41.9); HEMOGLOBIN 7.5 g/dL (10.9-14.3); LYMPHOCYTES # (AUTO) 0.7 K/uL (20.0-40.0); LYMPHOCYTES % (AUTO) 7.6 % (20.5-51.5); MEAN CORPUSCULAR HEMOGLOBIN 30.9 uug (24.7-32.8); MEAN CORPUSCULAR HGB CONC 34 g/dL (32.3-35.6); MEAN CORPUSCULAR VOLUME 89.8 fL (75.5-95.3); MONOCYTES # (AUTO) 0.8 K/uL (2.0-10.0); MONOCYTES % (AUTO) 8.7 % (0.0-11.0); NEUTROPHILS # (AUTO) 7.8 K/uL (1.8-8.9); NEUTROPHILS % (AUTO) 83.5 % (38.5-71.5); PLATELET COUNT (AUTO) 228 K/uL (179-408); WHITE BLOOD COUNT (AUTO) 9.4 K/uL (3.8-11.8)
[2018-10-13 04:44] LABS: RED BLOOD CELL COUNT(AUTO) 2.42 MIL/uL (3.63-4.92)
[2018-10-13 04:52] LABS: CARBON DIOXIDE 28 mmol/L (21-32); CHLORIDE 107 mmol/L (98-107); CREATININE 0.8 mg/dL (0.6-1.3); GLUCOSE 130 mg/dL (74-106); MAGNESIUM 2.1 mg/dL (1.8-2.4); PHOSPHOROUS 1.7 mg/dL (2.5-4.9); POTASSIUM 3.5 mmol/L (3.5-5.1); UREA NITROGEN, BLOOD 32 mg/dL (7-18); VANCOMYCIN,RANDOM 13.1 ug/mL (18.0-26.0)
[2018-10-13] MEDS: ACYCLOVIR IV 500 MG in IV DEXTROSE 5% 100 ML IV SCH ×3 (05:32→21:38)
--- NOTE | 2018-10-13 06:43 | NUR ---
On and off restless all night, removing O2 mask and throwing legs over the rails. Turned and repositioned many times. Safety maintained. Remains on Amiodarone drip at 0.5 mg/min. Monitor: Sr with rare PACs. BP stable.
--- NOTE | 2018-10-13 07:00 | NUR ---
RECEIVED AN 83 Y/O FEMALE PT A CASE OF SEPSIS,RVR, AND CHF, PT HAS A HX OF RT SIDE WEAKNESS RESULTED FROM A STROKE, SHE IS ALERT, DISORIENTED, SEEMS CONFUSED. BREATHING VIA VENTURI MASK @ 35% 5LPM. PT IS FARSI SPEAKING HAS A SLUR IN SPEECH. CONNECTED TO ECG MONITOR SHOWING SR. PT HAS A RT U.A PICC LINE AND LT IV LINE, RECEIVING IV N/S 0.9% @ 75ML/HR AND AMIODARONE DRIP AT 0.5MG/R TILL IT ENDS. HAS A GT TUBE, NPO AT THE MOMENT. URINATING VIA FC. PT HAS INNER THIGHS SKIN PEALING/ REDNESS.
--- NOTE | 2018-10-13 07:30 | NUR ---
PT PASSED A MEDIUM AMOUNT OF LOOSE STOOL, CARE DONE.
--- NOTE | 2018-10-13 08:14 | NUR ---
Clinical Pharmacy Note: Vancomycin Pharmacy to dose Subjective: To continue vancomycin in this 83 y/o female for indication of PNA. Also on zosyn, acyclovir. zosyn changed back to regular infusion duration d/t multiple incompatibilities Objective: weight 64kg height 157 cm BUN 32 Scr 0.8 Wbc 9.4 temp 98.1 Random today with am labs 13.1 Assessment/Plan Due to unstable renal function (increased from baseline, now decreased again), will dose per level for now. 1gm vanco dosed today at 0900, random level for tomorrow with am labs. Will check level in am and re-dose as appropriate. If Scr were to remain stable, may start scheduled regimen.
[2018-10-13] MEDS: PROTEIN SUPPLEMENT (PROSTAT) 30 ML LIQUID GT SCH (08:19)
[2018-10-13] MEDS: AMIODARONE HCL 200 MG TABLET GT SCH ×2 (08:26→20:46)
[2018-10-13] MEDS: MUPIROCIN 2% OINT 22 GM TUBE NS SCH ×2 (08:26→20:47)
[2018-10-13] MEDS: ZINC SULFATE 220 MG CAPSULE GT SCH (08:26)
[2018-10-13 08:28] LABS: ABG BASE EXCESS 3.9 mmol/L; ABG HCO3 26.8 mmol/L; ABG PCO2 33.1 mmHg (35.0-45.0); ABG PH 7.526 (7.350-7.450); ABG SITE RIGHT BRACHIAL; ABG TOTAL HEMOGLOBIN 8.1 G/dL (12.0-16.0); COHb 1.4 % (0.5-1.5); MetHb 0.5 % (0.0-1.5); O2Hb 96.6 % (94.0-97.0); VENT MODE Mask - Venturi
[2018-10-13] MEDS: LEVETIRACETAM 500 MG/5 ML LIQUID UDC GT SCH ×2 (08:29→20:46)
[2018-10-13] MEDS: Z GUARD REMEDY PASTE 57 GM TUBE TOP SCH ×2 (08:30→20:47)
[2018-10-13] MEDS: APIXABAN 5 MG TABLET PO SCH ×2 (08:30→17:37)
[2018-10-13] MEDS: ACETYLCYSTEINE 10% 4ML VIAL NEB SCH ×2 (08:43→18:52)
[2018-10-13] MEDS: IPRATROPIUM BROMIDE 0.5 MG/2.5 ML NEBU NEB PRN ×2 (08:43→18:52)
[2018-10-13] MEDS: LEVALBUTEROL HCL NEB 0.63 MG/3 ML NEBU NEB PRN (08:43)
[2018-10-13] MEDS ORDERED: VANCOMYCIN IV 1 G in PREMIXED 0 EACH IV ONE (09:00)
--- NOTE | 2018-10-13 09:00 | NUR ---
SEEN BY DR LUQUE, UPDATES GIVEN ON PT. ALL NEW ORDERS RECEIVED.
[2018-10-13] MEDS: POTASSIUM PHOSPHATE MM 7.5 MMOL in IV DEXTROSE 5% 100 ML IV SCH ×2 (10:11→13:11)
[2018-10-13] MEDS ORDERED: FUROSEMIDE 20 MG/2 ML VIAL IV ONE (11:30)
--- NOTE | 2018-10-13 12:15 | NUR ---
SEEN BY DR MARIE, ORDERED TO DC IVF ALL ORDERS RECEIVED
--- NOTE | 2018-10-13 12:56 | NUR ---
Received call from CCU RN. Plan for patient to resume enteral nutrition support. Chart was reviewed. Nutritional needs were re-evaluated. Anthropometrics: Ht: 62 in ABW: 144#/65.5kg IBW: 110#/50kg % IBW: 131% BMI: 26.3 kg/m2 Estimated nutritional needs (based on ABW 65kg): Kcal: 7846-0238 kcal/day (25-30 kcal/kg ABW) Protein: 65-78 gm/day (1-1.2 gm/kg ABW) Fluid: 7708-5169 ml/day (25-30 ml/kg ABW) Recommendation: - Osmolite 1.2 @ 60 ml/hr (goal rate) x 22 hrs. This would provide: 1584 kcal, 73 gm protein, 1082 ml water daily. This meets 97% of low end of est. kcal needs and 93% of high end of est. protein needs. - Additional free water per MD Addendum: 10/13/18 at [address] Amended: Links added.
--- NOTE | 2018-10-13 14:45 | NUR ---
ONE UNIT OF PRBC STARTED, NO COMPLICATIONS TO CONTINUE TO MONITOR
--- NOTE | 2018-10-13 15:00 | NUR ---
STOOL SAMPLE AND SENT TO LAB FOR C-DIFF
[2018-10-13] MEDS: PIPERACILLIN/TAZOBACTAM/D5W 3.375 G in PREMIXED 1 EACH IV SCH (15:19)
--- NOTE | 2018-10-13 16:30 | NUR ---
PT B/P ELEVATED HYDRALAZINE IV GIVEN , BP IMPROVED.
[2018-10-13] MEDS: hydrALAZINE HCL 20 MG/1 ML VIAL IV PRN (16:45)
[2018-10-13] MEDS: OSMOLITE 1.2 CAL 1,000 ML LIQUID GT PRN (16:49)
[2018-10-13] MEDS ORDERED: FUROSEMIDE 20 MG/2 ML VIAL IVP ONE (17:00)
--- NOTE | 2018-10-13 17:15 | NUR ---
CONTACTED DR MOREIRA, INFORMED HIM ABOUT PT BEING AGITATED AND ORDERED FOR RESTRAINTS AND TO GIVE ATIVAN PRN. ALSO INFORMED ABOUT CONTINUOS DIARRHEA, ORDER TO INSERT FLEXI SEAL RECEIVED.
[2018-10-13] MEDS: LORAZEPAM 2 MG/1 ML VIAL IV PRN (17:42)
[2018-10-13] MEDS: LEVALBUTEROL HCL NEB 0.63 MG/3 ML NEBU NEB SCH (18:52)
--- NOTE | 2018-10-13 19:30 | NUR ---
Report received. Patient on contact isolation for MRSA nares and sputum. Restless, With incomprehensible sounds but no appropriate verbal responses to questions. Appears to move all extremities fairly well. Doesn't follow any commands. With bilateral soft wrist restraints for safety. BPs trending high; medicated with Hydralazine IV by Dolores ROBERTS. Will monitor. Assessment completed; refer to CCU flow sheet for details. Addendum: 10/13/18 at 2128 by BALDOMERO VILLALOBOS RN Amended: Links added. Addendum: 10/13/18 at 2134 by BALDOMERO VILLALOBOS RN Amended: Links added.
--- NOTE | 2018-10-13 19:45 | NUR ---
Flexiseal leaking. Taken out and reinserted; irrigated gently. With liquid foul smelling brown stools; stool for C diff result pending. Bath given. Skin care provided. Patient continues to be mildly restless. Temp= 98.7 axilla. Tylenol given. Addendum: 10/13/18 at 2135 by BALDOMERO VILLALOBOS RN Amended: Links added.
[2018-10-13] MEDS: ACETAMINOPHEN 650 MG/20.3 ML LIQUID UDC GT PRN (19:46)
[2018-10-13] MEDS: ATORVASTATIN 40 MG TABLET GT SCH (20:46)
[2018-10-13] MEDS: MAGNESIUM OXIDE 400 MG TABLET GT SCH (20:46)
[2018-10-13] MEDS: IV NORMAL SALINE 250 ML IV PRN (20:52)
[2018-10-13] MEDS: METRONIDAZOLE 500 MG TABLET PO SCH (21:39)
[2018-10-14] VITALS (24 sets, daily range): BP systolic 101–180; BP diastolic 44–97
--- NOTE | 2018-10-14 | NUR ---
Tolerating GT feedings; rate increased to 30 ml/H.
--- NOTE | 2018-10-14 01:10 | NUR ---
Hydralazine IV given BP above 160. Addendum: 10/14/18 at 0140 by BALDOMERO VILLALOBOS RN Amended: Links added.
[2018-10-14] MEDS: hydrALAZINE HCL 20 MG/1 ML VIAL IV PRN ×3 (01:11→18:19)
--- NOTE | 2018-10-14 02:00 | NUR ---
Hydralazine effective.
[2018-10-14] MEDS: LORAZEPAM 2 MG/1 ML VIAL IV PRN (03:22)
[2018-10-14 05:05] LABS: BASOPHILS % (AUTO) 0.2 % (0.0-2.0); EOSINOPHILS # (AUTO) 0.9 K/uL (0.0-0.7); EOSINOPHILS % (AUTO) 8.2 % (0.0-7.0); HEMATOCRIT 27.2 % (31.2-41.9); HEMOGLOBIN 9.3 g/dL (10.9-14.3); LYMPHOCYTES # (AUTO) 1.1 K/uL (20.0-40.0); LYMPHOCYTES % (AUTO) 9.8 % (20.5-51.5); MEAN CORPUSCULAR HEMOGLOBIN 30.5 uug (24.7-32.8); MEAN CORPUSCULAR HGB CONC 34 g/dL (32.3-35.6); MONOCYTES # (AUTO) 0.9 K/uL (2.0-10.0); MONOCYTES % (AUTO) 8.4 % (0.0-11.0); NEUTROPHILS # (AUTO) 8.1 K/uL (1.8-8.9); NEUTROPHILS % (AUTO) 73.4 % (38.5-71.5); PLATELET COUNT (AUTO) 256 K/uL (179-408); RED BLOOD CELL COUNT(AUTO) 3.06 MIL/uL (3.63-4.92)
[2018-10-14 05:21] LABS: CARBON DIOXIDE 29 mmol/L (21-32); CHLORIDE 106 mmol/L (98-107); CREATININE 0.8 mg/dL (0.6-1.3); GLUCOSE 144 mg/dL (74-106); MAGNESIUM 2.1 mg/dL (1.8-2.4); PHOSPHOROUS 1.9 mg/dL (2.5-4.9); UREA NITROGEN, BLOOD 30 mg/dL (7-18); VANCOMYCIN,RANDOM 14.9 ug/mL (18.0-26.0)
[2018-10-14] MEDS: PIPERACILLIN/TAZOBACTAM/D5W 3.375 G in PREMIXED 1 EACH IV SCH ×2 (05:24→14:26)
[2018-10-14 05:25] LABS: POTASSIUM 2.8 mmol/L (3.5-5.1)
[2018-10-14] MEDS: METRONIDAZOLE 500 MG TABLET PO SCH ×2 (05:29→14:28)
[2018-10-14] MEDS: ACYCLOVIR IV 500 MG in IV DEXTROSE 5% 100 ML IV SCH ×3 (05:36→21:23)
[2018-10-14 05:57] LABS: BAND % (MANUAL) 2 % (0-10); EOSINOPHILS % (MANUAL) 7 % (0-8); LYMPHOCYTES % (MANUAL) 12 % (20-40); MONOCYTES % (MANUAL) 6 % (2-10); NEUTROPHILS % (MANUAL) 73 % (42-75)
[2018-10-14] MEDS ORDERED: POTASSIUM CHLORIDE 20 MEQ TAB.PRT.SR PO ONE (07:00)
--- NOTE | 2018-10-14 07:00 | NUR ---
NEW ORDERS BY DR MOREIRA TO GIVE ELECTROLYTE REPLACEMENT. ORDER RECEIVED
--- NOTE | 2018-10-14 07:00 | NUR ---
No seizure during the shift. Urine output good. Tolerating GT feedings well; rate now at 40 ml/H.
[2018-10-14] MEDS: ACETYLCYSTEINE 10% 4ML VIAL NEB SCH ×2 (07:34→18:50)
[2018-10-14] MEDS: LEVALBUTEROL HCL NEB 0.63 MG/3 ML NEBU NEB SCH ×2 (07:34→18:50)
[2018-10-14] MEDS: IPRATROPIUM BROMIDE 0.5 MG/2.5 ML NEBU NEB PRN ×2 (07:34→18:50)
--- NOTE | 2018-10-14 08:01 | NUR ---
RECEIVED AN 83 Y/O FEMALE PT A CASE OF SEPSIS,RVR, AND CHF, PT HAS A HX OF RT SIDE WEAKNESS RESULTED FROM A STROKE, SHE IS ALERT, DISORIENTED, SEEMS CONFUSED. BREATHING VIA VENTURI MASK @ 35% 5LPM. PT IS FARSI SPEAKING HAS A SLUR IN SPEECH. CONNECTED TO ECG MONITOR SHOWING SR. PT HAS A RT U.A PICC LINE AND LT IV LINE HAS A GT TUBE ON OSMOLITE 1.2 2 40ML.HR. PT HAS A FLEXI SEAL DUE TO CONTINUOS DIARRHEA.URINATING VIA FC. PT HAS INNER THIGHS SKIN PEALING/ REDNESS Z MICHA APPLIED.
--- NOTE | 2018-10-14 08:02 | NUR ---
Clinical Pharmacy Note: Vancomycin Pharmacy to dose Subjective: To continue vancomycin in this 83 y/o female for indication of PNA. Also on zosyn, acyclovir. Objective: weight 64kg height 157 cm BUN 30 Scr 0.8 Wbc 11.0 temp 97.7 Random today with am labs 14.9 Assessment/Plan Due to unstable renal function (increased from baseline, now decreased again), will dose per level for now. 1gm vanco dosed today at 0900, random level for tomorrow with am labs. Will check level in am and re-dose as appropriate. If Scr were to remain stable, may start scheduled regimen.
[2018-10-14] MEDS: AMIODARONE HCL 200 MG TABLET GT SCH ×2 (08:09→21:19)
[2018-10-14] MEDS: PROTEIN SUPPLEMENT (PROSTAT) 30 ML LIQUID GT SCH (08:09)
[2018-10-14] MEDS: ZINC SULFATE 220 MG CAPSULE GT SCH (08:09)
[2018-10-14] MEDS: MUPIROCIN 2% OINT 22 GM TUBE NS SCH ×2 (08:41→21:43)
[2018-10-14] MEDS: LEVETIRACETAM 500 MG/5 ML LIQUID UDC GT SCH ×2 (08:41→21:20)
[2018-10-14] MEDS: POTASSIUM PHOSPHATE MM 5 MMOL in IV DEXTROSE 5% 100 ML IV SCH ×4 (08:41→14:29)
[2018-10-14] MEDS: Z GUARD REMEDY PASTE 57 GM TUBE TOP SCH ×2 (08:42→21:25)
[2018-10-14] MEDS: APIXABAN 5 MG TABLET PO SCH ×2 (08:43→17:27)
[2018-10-14] MEDS: SPIRONOLACTONE 50 MG TABLET PO SCH (08:43)
--- NOTE | 2018-10-14 08:45 | NUR ---
SEEN BY DR BAÑUELOS, UPDATES GIVEN ON PATIENT, ALL NEW ORDERS RECEIVED
[2018-10-14] MEDS ORDERED: VANCOMYCIN IV 1 G in PREMIXED 0 EACH IV ONE (09:00)
[2018-10-14] MEDS ORDERED: FUROSEMIDE 40 MG/4 ML VIAL IV ONE (10:30)
[2018-10-14] MEDS: FAMOTIDINE 20 MG TABLET GT SCH (10:46)
--- NOTE | 2018-10-14 11:00 | NUR ---
MOUTH CARE DONE, ORAL SUCTION PROVIDED, SEEN BY DR JACKSON, UPDATES GIVEN ON PT AND NEW ORDERS RECEIVED
--- NOTE | 2018-10-14 12:00 | NUR ---
SEEN BY DR GARCIA, INFORMED ABOUT HIGH BP, NEW BP MEDICATION ADDED
[2018-10-14] MEDS: METOPROLOL TARTRATE 50 MG TABLET PO SCH ×2 (12:41→21:22)
--- NOTE | 2018-10-14 15:00 | NUR ---
BED BATH PROVIDED FOR PT, ALL BED LINEN CHANGED, Z-GAURD APPLIED ON SKIN PEELING
[2018-10-14] MEDS: OSMOLITE 1.2 CAL 1,000 ML LIQUID GT PRN (17:26)
[2018-10-14] MEDS: ACETAMINOPHEN 650 MG/20.3 ML LIQUID UDC GT PRN (18:36)
--- NOTE | 2018-10-14 18:45 | NUR ---
PT BECAME TACHYPNEIC, AND TACHYCARDIA, TEMP CHECKED 101 AXILLARY, TYLENOL GIVEN , STEWART ACKERMAN INFORMED
[2018-10-14] MEDS: MAGNESIUM OXIDE 400 MG TABLET GT SCH (21:21)
[2018-10-14] MEDS: ATORVASTATIN 40 MG TABLET GT SCH (21:21)
[2018-10-14] MEDS ORDERED: MEROPENEM 500 MG VIAL IV ONE (21:52)
[2018-10-14] MEDS: MEROPENEM 0.5 G in IV NORMAL SALINE 50 ML IV SCH (21:58)
[2018-10-15] VITALS (23 sets, daily range): BP systolic 103–173; BP diastolic 47–102
[2018-10-15] MEDS: LEVALBUTEROL HCL NEB 0.63 MG/3 ML NEBU NEB PRN ×2 (03:43→17:42)
[2018-10-15] MEDS: IPRATROPIUM BROMIDE 0.5 MG/2.5 ML NEBU NEB PRN ×4 (03:44→19:15)
[2018-10-15 05:01] LABS: BASOPHILS % (AUTO) 0.2 % (0.0-2.0); EOSINOPHILS # (AUTO) 1.3 K/uL (0.0-0.7); EOSINOPHILS % (AUTO) 10.1 % (0.0-7.0); HEMOGLOBIN 9.6 g/dL (10.9-14.3); LYMPHOCYTES # (AUTO) 1.1 K/uL (20.0-40.0); LYMPHOCYTES % (AUTO) 8.5 % (20.5-51.5); MEAN CORPUSCULAR HEMOGLOBIN 31.5 uug (24.7-32.8); MEAN CORPUSCULAR HGB CONC 36 g/dL (32.3-35.6); MEAN CORPUSCULAR VOLUME 88.5 fL (75.5-95.3); MONOCYTES # (AUTO) 0.9 K/uL (2.0-10.0); MONOCYTES % (AUTO) 6.9 % (0.0-11.0); NEUTROPHILS # (AUTO) 9.6 K/uL (1.8-8.9); NEUTROPHILS % (AUTO) 74.3 % (38.5-71.5); PLATELET COUNT (AUTO) 256 K/uL (179-408); RED BLOOD CELL COUNT(AUTO) 3.05 MIL/uL (3.63-4.92); WHITE BLOOD COUNT (AUTO) 12.9 K/uL (3.8-11.8)
[2018-10-15 05:05] LABS: CARBON DIOXIDE 28 mmol/L (21-32); CHLORIDE 105 mmol/L (98-107); CREATININE 0.8 mg/dL (0.6-1.3); GLUCOSE 137 mg/dL (74-106); MAGNESIUM 1.9 mg/dL (1.8-2.4); PHOSPHOROUS 2.2 mg/dL (2.5-4.9); POTASSIUM 3.7 mmol/L (3.5-5.1); UREA NITROGEN, BLOOD 27 mg/dL (7-18)
[2018-10-15] MEDS: ACETAMINOPHEN 650 MG/20.3 ML LIQUID UDC GT PRN ×2 (05:10→20:30)
[2018-10-15] MEDS: hydrALAZINE HCL 20 MG/1 ML VIAL IV PRN ×2 (05:11→16:23)
[2018-10-15] MEDS: ACYCLOVIR IV 500 MG in IV DEXTROSE 5% 100 ML IV SCH ×3 (05:24→21:31)
[2018-10-15] MEDS: MEROPENEM 0.5 G in IV NORMAL SALINE 50 ML IV SCH (06:09)
[2018-10-15] MEDS: AMIODARONE HCL 200 MG TABLET GT SCH ×2 (08:05→20:31)
[2018-10-15] MEDS: METOPROLOL TARTRATE 50 MG TABLET PO SCH ×2 (08:06→20:31)
[2018-10-15] MEDS: ZINC SULFATE 220 MG CAPSULE GT SCH (08:06)
[2018-10-15] MEDS: FAMOTIDINE 20 MG TABLET GT SCH (08:06)
[2018-10-15] MEDS: ACETYLCYSTEINE 10% 4ML VIAL NEB SCH ×2 (08:07→19:15)
[2018-10-15] MEDS: LEVALBUTEROL HCL NEB 0.63 MG/3 ML NEBU NEB SCH ×2 (08:07→19:15)
[2018-10-15] MEDS: APIXABAN 5 MG TABLET PO SCH ×2 (08:08→18:01)
[2018-10-15] MEDS: SPIRONOLACTONE 50 MG TABLET PO SCH (08:08)
[2018-10-15] MEDS: LEVETIRACETAM 500 MG/5 ML LIQUID UDC GT SCH ×2 (08:09→20:30)
[2018-10-15] MEDS: IV NORMAL SALINE 250 ML IV PRN (08:10)
[2018-10-15] MEDS: PROTEIN SUPPLEMENT (PROSTAT) 30 ML LIQUID GT SCH (08:11)
[2018-10-15] MEDS: Z GUARD REMEDY PASTE 57 GM TUBE TOP SCH ×2 (08:15→20:32)
[2018-10-15] MEDS: MUPIROCIN 2% OINT 22 GM TUBE NS SCH ×2 (08:15→20:32)
[2018-10-15 08:18] LABS: ABG BASE EXCESS 3.3 mmol/L; ABG HCO3 26.1 mmol/L; ABG PCO2 32.5 mmHg (35.0-45.0); ABG PH 7.523 (7.350-7.450); ABG PO2 128.7 mmHg (75.0-100.0); ABG SITE LEFT RADIAL; COHb 2.6 % (0.5-1.5); MetHb 0.6 % (0.0-1.5); O2Hb 96.1 % (94.0-97.0); VENT MODE Nasal Cannula
--- NOTE | 2018-10-15 09:14 | NUR ---
report received from Marylu ROBERTS, 83 yr old female was admitted on 10/09/18 for CHF, HTN/ was admittd to tele via ER post rapid response in ARU, but got transferred to CCU for rapid afib, was place on amiodarone drip times 24hrs. pattinet converted back to NSR. BP had been high so patient had been getting IV Hydralazine. GT feeding, Osmolite 1.2 at 60ml/hr times 22 hrs. PICC line intact via BERNARDO.has a saline lock via left AC #20. alexander catheter intact, flexiseal in place for diarrhea is negative for cdiff. is on isolation for MRSA of the nare and sputum. on o2 2 liters per cannula. needed to be suctioned naso pharyngeally. SCDS for DVT off , reapplied. on first step air mattress. Addendum: 10/15/18 at 0914 by DIALLO TRUJILLO RN Amended: Links added.
--- NOTE | 2018-10-15 11:25 | NUR ---
Clinical Pharmacy Note: Vancomycin Pharmacy to dose Subjective: To continue vancomycin in this 83 y/o female for indication of PNA. Also on merrem, acyclovir. Objective: weight 64kg height 157 cm BUN 27 Scr 0.8 Wbc 11.0 temp 97.7 Random today with am labs 13.9 Assessment/Plan Due to previously unstable renal fxn, advanced age, will dose per level for now. 1gm vanco dosed today at 1200, next random ordered with am labs tomorrow. Will check level and redose as needed tomorrow. Will follow
[2018-10-15] MEDS ORDERED: VANCOMYCIN IV 1 G in PREMIXED 0 EACH IV ONE (12:00)
[2018-10-15] MEDS: FUROSEMIDE 20 MG/2 ML VIAL IV SCH ×2 (15:01→20:31)
[2018-10-15] MEDS: LORAZEPAM 2 MG/1 ML VIAL IV PRN (15:34)
--- NOTE | 2018-10-15 15:34 | NUR ---
medicated for agitation. bp also high. Addendum: 10/15/18 at 1637 by DIALLO TRUJILLO RN Amended: Sherlyn added. Addendum: 10/15/18 at 1639 by DIALLO TRUJILLO RN Amended: Sherlyn added.
[2018-10-15] MEDS ORDERED: NEUTRA PHOS PACKET NG ONE (15:45)
[2018-10-15] MEDS: JEVITY 1.2 1000 ML LIQUID GT PRN (16:28)
--- NOTE | 2018-10-15 16:39 | NUR ---
medicated for high blood pressure Addendum: 10/15/18 at 1639 by DIALLO TRUJILLO RN Amended: Links added.
[2018-10-15] MEDS: MEROPENEM 500 MG in IV NORMAL SALINE 50 ML IV SCH (19:02)
--- NOTE | 2018-10-15 19:27 | NUR ---
report given to [email or web address] Addendum: 10/15/18 at 1927 by DIALLO TRUJILLO RN Amended: Links added.
--- NOTE | 2018-10-15 19:30 | NUR ---
Report received. Patient admitted to CCU 10/09/18 Dx: Sepsis, CHF. Drowsy, was medicated by am shift for agitation. Opens eyes to name, tracks but doesn't follow any commands. Farsi speaking, with incomprehensible sounds and noisy respirations during stimulation. O2 2L NC; sat 96-99%. 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 Assessment completed; refer to flow sheet. Addendum: 10/15/18 at 2213 by BALDOMERO VILLALOBOS RN Amended: Links added. Addendum: 10/15/18 at 2214 by BALDOMERO VILLALOBOS RN Amended: Links added. Addendum: 10/15/18 at 2213 by BALDOMERO VILLALOBOS RN Amended: Links added. Addendum: 10/15/18 at 2213 by BALDOMERO VILLALOBOS RN Amended: Links added. Addendum: 10/15/18 at 2214 by BALDOMERO VILLALOBOS RN Amended: Links added. Addendum: 10/15/18 at 2229 by BALDOMERO VILLALOBOS RN Amended: Links added. Addendum: 10/15/18 at 0 by BALDOMERO VILLALOBOS RN Amended: Links added. Addendum: 10/15/18 at 2230 by BALDOMERO VILLALOBOS RN Amended: Links added. Addendum: 10/15/18 at 2230 by BALDOMERO VILLALOBOS RN Amended: Links added. Addendum: 10/15/18 at 2230 by BALDOMERO VILLALOBOS RN Amended: Links added.
--- NOTE | 2018-10-15 20:00 | NUR ---
Temp= 99.9; cooling measures done. Turned and repositioned. Flexi seal in place with black liquid stools. Suctioned for large amounts of white thick oral secretions. Mildly agitated during suctioning; trying to grab Rn's hands while being suctioned. Advised appropriately. Daughter Reji visited. Updated of patient's condition. Addendum: 10/15/18 at 2229 by BALDOMERO VILLALOBOS RN Amended: Links added. Addendum: 10/15/18 at 2230 by BALDOMERO VILLALOBOS RN Amended: Links added. Addendum: 10/15/18 at 2229 by BALDOMERO VILLALOBOS RN Amended: Links added. Addendum: 10/15/18 at 2229 by BALDOMERO VILLALOBOS RN Amended: Links added. Addendum: 10/15/18 at 2229 by BALDOMERO VILLALOBOS RN Amended: Links added.
[2018-10-15] MEDS: ATORVASTATIN 40 MG TABLET GT SCH (20:31)
[2018-10-15] MEDS: MAGNESIUM OXIDE 400 MG TABLET GT SCH (20:31)
[2018-10-16] VITALS (18 sets, daily range): BP systolic 88–159; BP diastolic 36–77
--- NOTE | 2018-10-16 | NUR ---
Patient's daughter called; updated of condition.
--- NOTE | 2018-10-16 02:55 | NUR ---
Mildly restless. Medicated with Ativan IV.
[2018-10-16] MEDS: LORAZEPAM 2 MG/1 ML VIAL IV PRN ×2 (02:58→21:38)
[2018-10-16] MEDS: IV NORMAL SALINE 250 ML IV PRN (02:59)
--- NOTE | 2018-10-16 04:00 | NUR ---
Flexi seal leaking; irrigated gently. Bath given. Skin care provided.
[2018-10-16 05:16] LABS: CARBON DIOXIDE 31 mmol/L (21-32); CHLORIDE 105 mmol/L (98-107); CREATININE 0.8 mg/dL (0.6-1.3); GLUCOSE 105 mg/dL (74-106); PHOSPHOROUS 3.6 mg/dL (2.5-4.9); POTASSIUM 3.4 mmol/L (3.5-5.1); UREA NITROGEN, BLOOD 27 mg/dL (7-18); VANCOMYCIN,RANDOM 14.2 ug/mL (18.0-26.0)
[2018-10-16] MEDS: ACYCLOVIR IV 500 MG in IV DEXTROSE 5% 100 ML IV SCH ×3 (05:54→21:37)
--- NOTE | 2018-10-16 06:00 | NUR ---
Remains on O2 2L NC; sat above 94%. Contact isolation maintained.
[2018-10-16] MEDS: MEROPENEM 500 MG in IV NORMAL SALINE 50 ML IV SCH ×2 (06:53→20:56)
[2018-10-16] MEDS: LEVALBUTEROL HCL NEB 0.63 MG/3 ML NEBU NEB SCH ×2 (07:28→19:08)
[2018-10-16] MEDS: ACETYLCYSTEINE 10% 4ML VIAL NEB SCH ×2 (07:28→19:08)
[2018-10-16] MEDS: IPRATROPIUM BROMIDE 0.5 MG/2.5 ML NEBU NEB PRN ×2 (07:28→19:07)
[2018-10-16] MEDS: AMIODARONE HCL 200 MG TABLET GT SCH ×2 (08:34→20:57)
[2018-10-16] MEDS: PROTEIN SUPPLEMENT (PROSTAT) 30 ML LIQUID GT SCH (08:34)
[2018-10-16] MEDS: SPIRONOLACTONE 50 MG TABLET PO SCH (08:35)
[2018-10-16] MEDS: ZINC SULFATE 220 MG CAPSULE GT SCH (08:36)
[2018-10-16] MEDS: LEVETIRACETAM 500 MG/5 ML LIQUID UDC GT SCH ×2 (08:36→21:53)
[2018-10-16] MEDS: APIXABAN 5 MG TABLET PO SCH ×2 (08:36→16:48)
[2018-10-16] MEDS: FAMOTIDINE 20 MG TABLET GT SCH (08:36)
[2018-10-16] MEDS: METOPROLOL TARTRATE 50 MG TABLET PO SCH ×2 (08:37→20:57)
[2018-10-16] MEDS: MUPIROCIN 2% OINT 22 GM TUBE NS SCH ×2 (08:38→21:39)
[2018-10-16] MEDS: Z GUARD REMEDY PASTE 57 GM TUBE TOP SCH ×2 (08:40→21:40)
[2018-10-16] MEDS ORDERED: VANCOMYCIN IV 1 G in PREMIXED 0 EACH IV ONE (09:00)
[2018-10-16] MEDS ORDERED: POTASSIUM CHLORIDE 20 MEQ POWDER PACKET GT ONE (10:30)
[2018-10-16] MEDS: ACETAMINOPHEN 650 MG/20.3 ML LIQUID UDC GT PRN (11:34)
--- NOTE | 2018-10-16 12:28 | NUR ---
Clinical Pharmacy Note: Vancomycin Pharmacy to dose Subjective: To continue vancomycin in this 83 y/o female for indication of PNA. Objective: weight 64kg height 157 cm BUN 27 Scr 0.8 Wbc 11.0 (10/16) temp 99 Random today with am labs 14.2 Assessment/Plan Due to previously unstable renal fxn, advanced age, will dose per level for now. 1gm vanco dosed today at 0900, next random ordered with am labs tomorrow. Will check level and re-dose as needed tomorrow. Will follow
--- NOTE | 2018-10-16 12:57 | NUR ---
TRANSFER PATIENT TO [facility]. REPORT GIVEN TO ALEJANDRA ESPINOSA. PATIENT GOING TO ROOM 205.
--- NOTE | 2018-10-16 13:02 | NUR ---
Pt lethargic. Mittens applied on pt for safety due to pt pulls IV and lines. G-tube intact. Call light is within reach. PICC line on right brachial intact. IV HL on left forearm. SNR on 70's.
--- NOTE | 2018-10-16 18:00 | NUR ---
Family at bedside. PT more responsive per patient's family. Call light is within reach.
[2018-10-16] MEDS: ATORVASTATIN 40 MG TABLET GT SCH (20:56)
[2018-10-16] MEDS: MAGNESIUM OXIDE 400 MG TABLET GT SCH (20:57)
[2018-10-17] VITALS: BP 132/61
[2018-10-17 04:00] VITALS: BP 132/62
[2018-10-17] MEDS: ACYCLOVIR IV 500 MG in IV DEXTROSE 5% 100 ML IV SCH ×4 (05:32→21:44)
[2018-10-17] MEDS: MEROPENEM 500 MG in IV NORMAL SALINE 50 ML IV SCH ×2 (06:20→21:44)
[2018-10-17] MEDS: ACETYLCYSTEINE 10% 4ML VIAL NEB SCH ×2 (07:33→19:33)
[2018-10-17] MEDS: IPRATROPIUM BROMIDE 0.5 MG/2.5 ML NEBU NEB PRN ×2 (07:34→19:33)
[2018-10-17] MEDS: LEVALBUTEROL HCL NEB 0.63 MG/3 ML NEBU NEB SCH ×2 (07:34→19:33)
[2018-10-17 07:59] LABS: CARBON DIOXIDE 28 mmol/L (21-32); CHLORIDE 107 mmol/L (98-107); CREATININE 0.7 mg/dL (0.6-1.3); GLUCOSE 148 mg/dL (74-106); MAGNESIUM 1.9 mg/dL (1.8-2.4); PHOSPHOROUS 3.5 mg/dL (2.5-4.9); POTASSIUM 4.5 mmol/L (3.5-5.1); UREA NITROGEN, BLOOD 27 mg/dL (7-18); VANCOMYCIN,RANDOM 13.1 ug/mL (18.0-26.0)
[2018-10-17 08:08] LABS: BASOPHILS % (AUTO) 0.3 % (0.0-2.0); EOSINOPHILS # (AUTO) 1.2 K/uL (0.0-0.7); EOSINOPHILS % (AUTO) 9.9 % (0.0-7.0); HEMATOCRIT 25.7 % (31.2-41.9); HEMOGLOBIN 8.6 g/dL (10.9-14.3); LYMPHOCYTES # (AUTO) 1.5 K/uL (20.0-40.0); LYMPHOCYTES % (AUTO) 12.2 % (20.5-51.5); MEAN CORPUSCULAR HEMOGLOBIN 30.7 uug (24.7-32.8); MEAN CORPUSCULAR HGB CONC 34 g/dL (32.3-35.6); MEAN CORPUSCULAR VOLUME 91.1 fL (75.5-95.3); MONOCYTES # (AUTO) 1.1 K/uL (2.0-10.0); MONOCYTES % (AUTO) 8.8 % (0.0-11.0); NEUTROPHILS # (AUTO) 8.5 K/uL (1.8-8.9); NEUTROPHILS % (AUTO) 68.8 % (38.5-71.5); PLATELET COUNT (AUTO) 254 K/uL (179-408); RED BLOOD CELL COUNT(AUTO) 2.82 MIL/uL (3.63-4.92); WHITE BLOOD COUNT (AUTO) 12.3 K/uL (3.8-11.8)
[2018-10-17] MEDS: ZINC SULFATE 220 MG CAPSULE GT SCH (08:23)
[2018-10-17] MEDS: SPIRONOLACTONE 50 MG TABLET PO SCH (08:23)
[2018-10-17] MEDS: FAMOTIDINE 20 MG TABLET GT SCH (08:25)
[2018-10-17] MEDS: AMIODARONE HCL 200 MG TABLET GT SCH (08:25)
[2018-10-17] MEDS: LEVETIRACETAM 500 MG/5 ML LIQUID UDC GT SCH ×2 (08:25→21:44)
[2018-10-17] MEDS: METOPROLOL TARTRATE 50 MG TABLET PO SCH ×2 (08:26→21:44)
[2018-10-17] MEDS: MUPIROCIN 2% OINT 22 GM TUBE NS SCH ×2 (08:27→22:42)
[2018-10-17] MEDS: PROTEIN SUPPLEMENT (PROSTAT) 30 ML LIQUID GT SCH (08:27)
[2018-10-17] MEDS: Z GUARD REMEDY PASTE 57 GM TUBE TOP SCH ×2 (08:27→21:00)
[2018-10-17] MEDS: APIXABAN 5 MG TABLET PO SCH ×2 (08:29→16:11)
[2018-10-17 08:51] LABS: ABG BASE EXCESS 1.8 mmol/L; ABG HCO3 24.7 mmol/L; ABG PCO2 33.7 mmHg (35.0-45.0); ABG PH 7.483 (7.350-7.450); ABG PO2 89.4 mmHg (75.0-100.0); ABG SITE RIGHT RADIAL; VENT MODE Nasal Cannula
[2018-10-17] MEDS: VANCOMYCIN IV 1 G in PREMIXED 0 EACH IV SCH (09:15)
[2018-10-17 10:02] LABS: BAND % (MANUAL) 2 % (0-10); EOSINOPHILS % (MANUAL) 9 % (0-8); LYMPHOCYTES % (MANUAL) 15 % (20-40); METAMYELOCYTES % 2 % (0-1); MONOCYTES % (MANUAL) 5 % (2-10); MYELOCYTES % 2 % (0-0); NEUTROPHILS % (MANUAL) 65 % (42-75)
[2018-10-17 11:17] VITALS: BP 116/47
--- NOTE | 2018-10-17 11:44 | NUR ---
WOUND CARE CONSULT PATIENT SEEN AND SKIN INTEGRITY ASSESSMENT DONE. SEE SHINGLER ASSESSMENT IN PCS FOR TODAY. PATIENT WITH KISHA AT 15, TREATMENT RECOMMENDATIONS MADE AND MD IN AGREEMENT. ALL PRESSURE ULCER PREVENTION MEASURES ARE NOTED TO BE IN PLACE AT THIS TIME. WILL SEE PRN.
--- NOTE | 2018-10-17 11:57 | NUR ---
Clinical Pharmacy Note: Vancomycin Pharmacy to dose Subjective: To continue vancomycin in this 83 y/o female for indication of PNA. Objective: weight 64kg height 157 cm BUN 27 Scr 0.7 Wbc 11.0 (10/16) temp 99 Random today with am labs 13.1 Assessment/Plan As renal function has remained relatively stable, will start regimen of 1gm q20h for estimated trough of 15.4, first dose today at 0900. Will order trough before 4th scheduled dose (not ordred yet). If condition or renal function were to change, may dose per level and stop regimen. Otherwise will follow trough for further dosing. Will follow
[2018-10-17] MEDS: ACETAMINOPHEN 650 MG/20.3 ML LIQUID UDC GT PRN ×2 (13:11→21:47)
[2018-10-17 15:20] VITALS: BP 123/66
[2018-10-17] MEDS ORDERED: FUROSEMIDE 20 MG/2 ML VIAL IV ONE (16:45)
[2018-10-17 20:47] VITALS: BP 169/75
[2018-10-17] MEDS: MAGNESIUM OXIDE 400 MG TABLET GT SCH (21:44)
[2018-10-17] MEDS: ATORVASTATIN 40 MG TABLET GT SCH (21:45)
[2018-10-18 00:35] VITALS: BP 140/61
[2018-10-18 04:00] VITALS: BP 158/66
[2018-10-18] MEDS: JEVITY 1.2 1000 ML LIQUID GT PRN (04:09)
[2018-10-18] MEDS: VANCOMYCIN IV 1 G in PREMIXED 0 EACH IV SCH (04:44)
--- NOTE | 2018-10-18 06:00 | NUR ---
CONTINUES TO TOLERATE FDG, KEPT CLEAN/DRY AND TURNED Q 2 HRS. NO DISTRESS NOTED OR VOICED.
[2018-10-18] MEDS: ACYCLOVIR IV 500 MG in IV DEXTROSE 5% 100 ML IV SCH ×3 (06:15→21:35)
[2018-10-18] MEDS: MEROPENEM 500 MG in IV NORMAL SALINE 50 ML IV SCH ×2 (06:16→18:07)
[2018-10-18 07:09] VITALS: BP 153/64
[2018-10-18] MEDS: LEVALBUTEROL HCL NEB 0.63 MG/3 ML NEBU NEB SCH (07:48)
[2018-10-18] MEDS: IPRATROPIUM BROMIDE 0.5 MG/2.5 ML NEBU NEB PRN ×3 (07:49→20:16)
[2018-10-18] MEDS: ACETYLCYSTEINE 10% 4ML VIAL NEB SCH ×2 (07:49→20:16)
--- NOTE | 2018-10-18 08:00 | NUR ---
AWAKE ALERT BUT CONFUSED X3, BILATERAL MITTENS ON BILATERALLY TO PREVENT PULLING OF TUBES
[2018-10-18] MEDS ORDERED: ALBUTEROL SULFATE 1.25 MG/3 ML NEBU NEB PRN (08:30)
[2018-10-18] MEDS: LEVETIRACETAM 500 MG/5 ML LIQUID UDC GT SCH ×2 (08:45→20:52)
[2018-10-18] MEDS: AMIODARONE HCL 200 MG TABLET GT SCH (08:45)
[2018-10-18] MEDS: METOPROLOL TARTRATE 50 MG TABLET PO SCH (08:46)
[2018-10-18] MEDS: SPIRONOLACTONE 50 MG TABLET PO SCH (08:46)
[2018-10-18] MEDS: FAMOTIDINE 20 MG TABLET GT SCH (08:46)
[2018-10-18] MEDS: MUPIROCIN 2% OINT 22 GM TUBE NS SCH ×2 (08:46→20:53)
[2018-10-18] MEDS: ZINC SULFATE 220 MG CAPSULE GT SCH (08:46)
[2018-10-18] MEDS: PROTEIN SUPPLEMENT (PROSTAT) 30 ML LIQUID GT SCH (08:47)
[2018-10-18] MEDS: Z GUARD REMEDY PASTE 57 GM TUBE TOP SCH ×2 (08:47→20:53)
[2018-10-18] MEDS: APIXABAN 5 MG TABLET PO SCH ×2 (08:49→16:34)
[2018-10-18 11:12] VITALS: BP 148/67
--- NOTE | 2018-10-18 11:30 | NUR ---
NO ACUTE CHANGE SR ON MONITOR
--- NOTE | 2018-10-18 11:33 | NUR ---
Clinical Pharmacy Note: Vancomycin Pharmacy to dose Subjective: To continue vancomycin in this 83 y/o female for indication of PNA. Objective: weight 64kg height 157 cm BUN 27 (10/17) Scr 0.7 (10/17) Wbc 11.0 (10/16) temp 98 Assessment/Plan Will continue same regimen of vanco 1gm IVPB q20h for today. 3rd dose tomorrow at 0100. Will order trough before 4th scheduled dose (not ordered yet). If condition or renal function were to change, may dose per level and stop regimen. Otherwise will follow trough for further dosing. Will follow
--- NOTE | 2018-10-18 14:30 | NUR ---
SEEN BY TAMI ROSS, AND KARLOS SEE NOTES. CONTINUE WITH CURRENT TX PLAN. IV ANTIBIOTICS ORDERED NO SS OF ALLERGY REACTION
[2018-10-18 15:00] VITALS: BP 147/68
--- NOTE | 2018-10-18 17:18 | NUR ---
PLAN DC TO SNF , SR ON MONITOR. REQUIRES FREQUENT ORAL CARE
[2018-10-18] MEDS: IV NORMAL SALINE 250 ML IV PRN (17:53)
--- NOTE | 2018-10-18 19:36 | NUR ---
PATIENT IS AWAKE, ALERT, APHASIC WITH CONFUSION. NO SOB OR SIGNS OF DISTRESS ON ASSESSMENT. SAFETY MEASURES IN PLACE, FAMILY AT BEDSIDE VISITING WITH PATIENT
[2018-10-18 20:09] VITALS: BP 148/73
[2018-10-18] MEDS: ALBUTEROL SULFATE 1.25 MG/3 ML NEBU NEB SCH (20:16)
[2018-10-18] MEDS: MAGNESIUM OXIDE 400 MG TABLET GT SCH (20:52)
[2018-10-18] MEDS: METOPROLOL TARTRATE 50 MG TABLET GT SCH (20:53)
[2018-10-18] MEDS: ATORVASTATIN 40 MG TABLET GT SCH (20:54)
[2018-10-19] VITALS (7 sets, daily range): BP systolic 98–142; BP diastolic 43–68
[2018-10-19] MEDS: JEVITY 1.2 1000 ML LIQUID GT PRN ×2 (00:30→23:15)
[2018-10-19] MEDS: VANCOMYCIN IV 1 G in PREMIXED 0 EACH IV SCH ×2 (00:41→22:26)
[2018-10-19] MEDS: ACYCLOVIR IV 500 MG in IV DEXTROSE 5% 100 ML IV SCH ×3 (05:01→21:07)
[2018-10-19] MEDS: MEROPENEM 500 MG in IV NORMAL SALINE 50 ML IV SCH ×2 (06:03→18:19)
--- NOTE | 2018-10-19 06:10 | NUR ---
PATIENT SLEPT WELL THROUGH THE SHIFT, NO SOB OR ANY DISTRESS OR SIGNS OF PAIN ON THIS SHIFT. TELE SR, NO SIGNIFICANT CHANGES IN STATUS. SAFETY AND COMFORT MEASURES MAINTAINED AT ALL TIMES
[2018-10-19] MEDS: IPRATROPIUM BROMIDE 0.5 MG/2.5 ML NEBU NEB PRN ×2 (07:39→19:09)
[2018-10-19] MEDS: ALBUTEROL SULFATE 1.25 MG/3 ML NEBU NEB SCH ×2 (07:39→19:09)
[2018-10-19] MEDS: ACETYLCYSTEINE 10% 4ML VIAL NEB SCH ×2 (07:39→19:08)
--- NOTE | 2018-10-19 08:00 | NUR ---
AWAKE ALERT BUT REMAINS CONFUSED X3, BILATERAL MITTENS FOR SAFETY. TENDS TO PULL TUBES. SR ON MONITOR.
[2018-10-19] MEDS: ZINC SULFATE 220 MG CAPSULE GT SCH (08:30)
[2018-10-19] MEDS: ACETAMINOPHEN 650 MG/20.3 ML LIQUID UDC GT PRN (08:30)
[2018-10-19] MEDS: SPIRONOLACTONE 50 MG TABLET PO SCH (08:30)
[2018-10-19] MEDS: FAMOTIDINE 20 MG TABLET GT SCH (08:30)
[2018-10-19] MEDS: LEVETIRACETAM 500 MG/5 ML LIQUID UDC GT SCH ×2 (08:30→20:38)
[2018-10-19] MEDS: APIXABAN 5 MG TABLET PO SCH ×2 (08:30→16:50)
[2018-10-19] MEDS: METOPROLOL TARTRATE 50 MG TABLET GT SCH ×2 (08:31→20:44)
[2018-10-19] MEDS: PROTEIN SUPPLEMENT (PROSTAT) 30 ML LIQUID GT SCH (08:31)
[2018-10-19] MEDS: AMIODARONE HCL 200 MG TABLET GT SCH (08:31)
[2018-10-19] MEDS: MUPIROCIN 2% OINT 22 GM TUBE NS SCH ×2 (08:32→20:38)
[2018-10-19] MEDS: Z GUARD REMEDY PASTE 57 GM TUBE TOP SCH ×2 (08:33→21:05)
--- NOTE | 2018-10-19 11:00 | NUR ---
SON IN AND SPOKE WITH SOLE ROUGHER ABOUT DC PLAN.
--- NOTE | 2018-10-19 13:11 | NUR ---
DC PLAN TO SNF IN AM SEE CM NOTES.
--- NOTE | 2018-10-19 13:45 | NUR ---
Clinical Pharmacy Note: Vancomycin Pharmacy to dose Subjective: To continue vancomycin in this 83 y/o female for indication of PNA. Objective: weight 64kg height 157 cm BUN 27 (10/17) Scr 0.7 (10/17) Wbc 11.0 (10/16) temp 98 Trough pending tonight at 2029 Assessment/Plan Will continue same regimen of vanco 1gm IVPB q20h for today. Trough ordered for tonight before 4th scheduled dose, due at 2029. RN endorsed to hold dose if Tr >20. Will check level in am and adjust as needed. Will follow
[2018-10-19] MEDS: IV NORMAL SALINE 250 ML IV PRN (15:56)
--- NOTE | 2018-10-19 18:00 | NUR ---
SEEN BY DR GARRETT ADVICED TO CONTINUE AMIODARONE PILL X1 MONTH POST DISCHARGE. PLS SEE NOTES
--- NOTE | 2018-10-19 18:29 | NUR ---
NO ACUTE CHANGE. DC PLAN IN PROGRESS PENDING FAMILY PREFERENCE
[2018-10-19] MEDS: ATORVASTATIN 40 MG TABLET GT SCH (20:43)
[2018-10-19] MEDS: MAGNESIUM OXIDE 400 MG TABLET GT SCH (20:44)
[2018-10-19] MEDS: LORAZEPAM 2 MG/1 ML VIAL IV PRN (20:48)
[2018-10-20 04:41] VITALS: BP 116/48
[2018-10-20] MEDS: ACYCLOVIR IV 500 MG in IV DEXTROSE 5% 100 ML IV SCH ×2 (05:32→15:29)
[2018-10-20] MEDS: MEROPENEM 500 MG in IV NORMAL SALINE 50 ML IV SCH (06:32)
[2018-10-20 06:49] LABS: CARBON DIOXIDE 28 mmol/L (21-32); CHLORIDE 101 mmol/L (98-107); CREATININE 0.6 mg/dL (0.6-1.3); GLUCOSE 127 mg/dL (74-106); MAGNESIUM 1.9 mg/dL (1.8-2.4); PHOSPHOROUS 4.5 mg/dL (2.5-4.9); POTASSIUM 4.7 mmol/L (3.5-5.1); UREA NITROGEN, BLOOD 19 mg/dL (7-18)
[2018-10-20] MEDS: ALBUTEROL SULFATE 1.25 MG/3 ML NEBU NEB SCH ×2 (07:21→19:49)
[2018-10-20] MEDS: IPRATROPIUM BROMIDE 0.5 MG/2.5 ML NEBU NEB PRN ×2 (07:21→19:49)
[2018-10-20] MEDS: ACETYLCYSTEINE 10% 4ML VIAL NEB SCH ×2 (07:21→19:50)
--- NOTE | 2018-10-20 07:30 | NUR ---
RECIEVED PT IN BED, AWAKE BUT RESTLESS AND APHASIC. BOTH HANDS ON MITTENS INTACT FOR MEDICAL SAFETY. PICC LINE ON BERNARDO INTACT, PATENT, ONE PORT IS CLOGGED. TELE- SR. PT UNABLE TO FOLLOW COMMANDS. NO APPARENT RESPIRATORY DISTRESS. O2 ON 1L NC, GOOD SATURATION. AFEBRILE.
[2018-10-20 07:44] LABS: EOSINOPHILS # (AUTO) 0.6 K/uL (0.0-0.7); HEMOGLOBIN 8.8 g/dL (10.9-14.3)
[2018-10-20 08:02] LABS: BASOPHILS # (AUTO) 0.1 K/uL (0.0-8.0); BASOPHILS % (AUTO) 0.5 % (0.0-2.0); EOSINOPHILS % (AUTO) 3.5 % (0.0-7.0); HEMATOCRIT 25.9 % (31.2-41.9); LYMPHOCYTES # (AUTO) 2.2 K/uL (20.0-40.0); LYMPHOCYTES % (AUTO) 13.6 % (20.5-51.5); MEAN CORPUSCULAR HEMOGLOBIN 30.8 uug (24.7-32.8); MEAN CORPUSCULAR HGB CONC 34 g/dL (32.3-35.6); MONOCYTES # (AUTO) 1.4 K/uL (2.0-10.0); MONOCYTES % (AUTO) 8.4 % (0.0-11.0); PLATELET COUNT (AUTO) 288 K/uL (179-408); RED BLOOD CELL COUNT(AUTO) 2.85 MIL/uL (3.63-4.92)
[2018-10-20 08:03] LABS: WHITE BLOOD COUNT (AUTO) 16.2 K/uL (3.8-11.8)
--- NOTE | 2018-10-20 08:30 | NUR ---
PT IS INCONTINENT OF STOOLS. HAS FLEXISEAL INTACT DRAINING LOOSE BRWN BM. GT INTACT, PT ON TUBE FEEDING JEVITY 1.2 AT 55 ML/HR INFUSING WELL. NO RESIDUALS NOTED. FREQUENT TURNING TO SIDES. NO APPARENT DISTRESS. SEEN AND EXAMINED BY DR STEVENSON WITH A DISCHARGE ORDER. DC TIRE REPAIRER AWARE AND WORKING ON SNF PLACEMENT.
[2018-10-20] MEDS ORDERED: VANC1PLA9 IV (08:45)
[2018-10-20] MEDS ORDERED: MERO500V IV (08:45)
[2018-10-20] MEDS ORDERED: METO50TA16 GT (08:45)
[2018-10-20] MEDS ORDERED: LEVE100S GT (08:45)
[2018-10-20] MEDS ORDERED: ACYC200P IV (08:45)
[2018-10-20] MEDS ORDERED: SPIR50TA PO (08:45)
[2018-10-20] MEDS ORDERED: ALBU1.25 NEB (08:45)
[2018-10-20 09:01] LABS: BAND % (MANUAL) 1 % (0-10); EOSINOPHILS % (MANUAL) 6 % (0-8); LYMPHOCYTES % (MANUAL) 18 % (20-40); METAMYELOCYTES % 3 % (0-1); MONOCYTES % (MANUAL) 8 % (2-10); MYELOCYTES % 3 % (0-0); NEUTROPHILS % (MANUAL) 61 % (42-75)
[2018-10-20] MEDS: JEVITY 1.2 1000 ML LIQUID GT PRN (10:05)
[2018-10-20] MEDS: LEVETIRACETAM 500 MG/5 ML LIQUID UDC GT SCH ×3 (10:06→20:08)
[2018-10-20] MEDS: SPIRONOLACTONE 50 MG TABLET PO SCH ×2 (10:06→10:14)
[2018-10-20] MEDS: MUPIROCIN 2% OINT 22 GM TUBE NS SCH ×3 (10:06→20:08)
[2018-10-20] MEDS: ZINC SULFATE 220 MG CAPSULE GT SCH ×2 (10:06→10:14)
[2018-10-20] MEDS: FAMOTIDINE 20 MG TABLET GT SCH ×2 (10:06→10:14)
[2018-10-20] MEDS: METOPROLOL TARTRATE 50 MG TABLET GT SCH ×2 (10:15→20:06)
[2018-10-20] MEDS: AMIODARONE HCL 200 MG TABLET GT SCH (10:16)
[2018-10-20] MEDS: APIXABAN 5 MG TABLET PO SCH ×2 (10:17→17:07)
[2018-10-20] MEDS: Z GUARD REMEDY PASTE 57 GM TUBE TOP SCH ×2 (10:18→20:04)
[2018-10-20] MEDS: PROTEIN SUPPLEMENT (PROSTAT) 30 ML LIQUID GT SCH (10:19)
[2018-10-20 11:05] VITALS: BP 117/47
--- NOTE | 2018-10-20 12:33 | NUR ---
Clinical Pharmacy Note: Vancomycin Pharmacy to dose Subjective: To continue vancomycin in this 83 y/o female for indication of PNA. Objective: weight 64kg height 157 cm BUN 16 Scr 0.6 Wbc 16.2 temp 97.6 Trough 10/19 at 2030:15.2 Assessment/Plan Since Vancomycin trough is within the range, will continue same regimen of vanco 1gm IVPB q20h for now. Will follow daily.
--- NOTE | 2018-10-20 14:00 | NUR ---
FAMILY AT THE BEDSIDE. HOB UP AT 35DEGREES.
[2018-10-20] MEDS ORDERED: MICAFUNGIN SODIUM 100 MG in IV NORMAL SALINE 100 ML IV SCH (15:00)
[2018-10-20] MEDS ORDERED: MEROPENEM 500 MG in IV NORMAL SALINE 50 ML IV SCH (15:00)
[2018-10-20 15:43] VITALS: BP 110/50
--- NOTE | 2018-10-20 16:30 | NUR ---
PLACEMENT TO [facility] DONE AND PT CAN TRANSFERRED THIS EVENING. FAMILY IS AWARE.
[2018-10-20] MEDS: VANCOMYCIN IV 1 G in PREMIXED 0 EACH IV SCH (17:06)
--- NOTE | 2018-10-20 20:00 | NUR ---
RECEIVED PATIENT AWAKE IN BED WITH DAUGHTER AT BEDSIDE. WAITING FOR AMBULANCE APPLICATION DESIGN ENGINEER. VSS. O2 2L NC SATING 98%. NO S/S OF PAIN OR DISCOMFORT. NO FACIAL GRIMACE NOTED. FLEXI-SEAL REMOVED. ALL NEEDS ATTENDED. WILL CONTINUE TO MONITOR AND ASSESS.
[2018-10-20] MEDS: MAGNESIUM OXIDE 400 MG TABLET GT SCH (20:04)
[2018-10-20] MEDS: ATORVASTATIN 40 MG TABLET GT SCH (20:04)
--- NOTE | 2018-10-20 20:30 | NUR ---
AMBULANCE AT BEDSIDE GRADUATE TEACHING ASSOCIATE PATIENT.
[2018-10-20 20:33] VITALS: BP 142/46
--- NOTE | 2018-10-20 20:40 | NUR ---
PATIENT LEFT FACILITY IN STABLE CONDITION. ALL NEEDS ATTENDED.
== END 2018-10-20 19:50 | DRG 871 ==
LOC: ER 17:04 → CCU 19:16 → TELE 10-10 07:00 → CCU 10-10 19:37 → TELE-TD 10-16 12:54 → TELE 10-19 11:00
PROVIDERS: ADMIT Internal Medicine Nephrology; ATTEND Internal Medicine
PROC: 30243N1 Transfusion of Nonautologous Red Blood Cells into Central Vein, Percutaneous Approach (ICD-10-PCS; principal; 2018-10-13)
DX: A41.9 Sepsis, unspecified organism (principal); J96.01 Acute respiratory failure with hypoxia; B00.4 Herpesviral encephalitis; J69.0 Pneumonitis due to inhalation of food and vomit; R65.21 Severe sepsis with septic shock; I50.33 Acute on chronic diastolic (congestive) heart failure; I21.4 Non-ST elevation (NSTEMI) myocardial infarction; E87.1 Hypo-osmolality and hyponatremia; J98.11 Atelectasis; G93.40 Encephalopathy, unspecified; I13.0 Hypertensive heart and chronic kidney disease with heart failure and stage 1 through stage 4 chronic kidney disease, or unspecified chronic kidney disease; I48.0 Paroxysmal atrial fibrillation; Z79.01 Long term (current) use of anticoagulants; Z88.2 Allergy status to sulfonamides; J84.10 Pulmonary fibrosis, unspecified; Z93.1 Gastrostomy status; I69.991 Dysphagia following unspecified cerebrovascular disease; R13.10 Dysphagia, unspecified; T50.2X5D Adverse effect of carbonic-anhydrase inhibitors, benzothiadiazides and other diuretics, subsequent encounter; M81.0 Age-related osteoporosis without current pathological fracture; G40.909 Epilepsy, unspecified, not intractable, without status epilepticus; E87.6 Hypokalemia; E83.42 Hypomagnesemia; E78.5 Hyperlipidemia, unspecified; E11.22 Type 2 diabetes mellitus with diabetic chronic kidney disease; N18.2 Chronic kidney disease, stage 2 (mild); D64.9 Anemia, unspecified; L89.152 Pressure ulcer of sacral region, stage 2
CPT/HCPCS: 36415; 36600; 70030-TC; 71045; 74018; 83605; 83735; 84100; 85025; 85730; 86850; 86900; 86901; 86920; 87040; 87070; 87077; 87086; 93005; 93307; 94640; 94664; 97110; A4217; A4663; G0378; J0133; J0282; J0360; J1940; J2060; J2185; J2248; J2270; J2543; J2920; J3370; J3475; J3480; J3490; J3590; J7030; J7040; J7050; J7060; J7614; P9016-BL; P9021